=== PATIENT | male | born 1945 | race Two or more races ===

== ENCOUNTER 2018-01-28 17:39 | Inpatient (IN) | payer MEDICARE, OTHER ==
[~2018-01-28] VITALS: Ht 180.3 cm; Wt 89.8 kg
[~2018-01-28 17:39] MED LIST: ALBUAER3 IN; WARF6TAB21 PO
[2018-01-28 20:26] LABS: Basophils # (auto) 0 uL; Basophils % (auto) 0.2 % (0.0-2.0); Eosinophils # (auto) 0.1 uL; Eosinophils % (auto) 1.7 % (0.0-7.0); Hematocrit 29.8 % (41.0-53.0); Hemoglobin 10.1 g/dL (13.5-17.5); Lymphocytes # (auto) 1.2 uL; Lymphocytes % (auto) 27.4 % (10.0-50.0); Mean Corpuscular Hemoglobin 32.6 pg (28.0-32.0); Mean Corpuscular Volume 95.8 fL (80.0-100.0); Monocytes # (auto) 0.4 uL; Monocytes % (auto) 9.2 % (0.0-12.0); Neutrophils # (auto) 2.7 uL; Neutrophils % (auto) 61.5 % (37.0-80.0); Nucleated Red Blood Cells % 0.1 %; Platelet Count (auto) 158 10^3/uL (140-450); Red Cell Distribution Width 13.9 % (11.8-14.3); White Blood Cell 4.4 10^3/uL (4.4-10.8)
[2018-01-28 20:37] LABS: Albumin 2.8 g/dL (3.4-5.0); Anion Gap 4 (5-15); BUN/Creatinine Ratio 24.5; Blood Urea Nitrogen 23 mg/dL (7-18); Calcium 7.6 mg/dL (8.5-10.1); Carbon Dioxide 29 mmol/L (21-32); Chloride 109 mmol/L (98-107); GFR African American 102 mL/min; GFR Non-African American 84 mL/min; Glucose 148 mg/dL (74-106); Magnesium 2.2 mg/dL (1.6-2.6); Potassium 4.1 mmol/L (3.5-5.1); Sodium 142 mmol/L (136-145)
[2018-01-28 20:45] LABS: Alanine Aminotransferase 21 U/L (16-61); Alkaline Phosphatase 57 U/L (45-117); Aspartate Aminotransferase 21 U/L (15-37); Bilirubin, Total 0.5 mg/dL (0.2-1.0); Total Protein 5.7 g/dL (6.4-8.2)
[2018-01-28] MEDS ORDERED: SODIUM CHLORIDE 0.9% 500 ML IV ONE (22:00)
[2018-01-28 22:45] LABS: Amylase 44 U/L (25-115); INR 3.01 (0.9-1.15); Lipase 132 U/L (73-393); Partial Thromboplastin Time 32.7 sec (23.78-33.04); Prothrombin Time 30.3 sec (9.27-12.13)
[2018-01-29 01:48] LABS: Urine Bacteria NONE SEEN /hpf (None Seen); Urine Blood Negative /uL (Negative); Urine Mucus FEW (None Seen); Urine Specific Gravity 1.025 (1.001-1.035); Urine WBC 1 /hpf (0 - 3)
[2018-01-29] MEDS ORDERED: ACETAMINOPHEN 500 MG TAB PO PRN (03:30)
[2018-01-29] MEDS ORDERED: ONDANSETRON HCL 4 MG/2 ML VIAL IV PRN (03:30)
[2018-01-29] MEDS ORDERED: HYDROcodone-ACET 5/325MG TAB PO PRN (03:30)
[2018-01-29] MEDS: SODIUM CHLORIDE 0.9% 1,000 ML IV SCH ×2 (03:30→16:50)
[2018-01-29] MEDS ORDERED: DEXTROSE (50%) 50ML SYRG IV PRN (03:30)
[2018-01-29] MEDS: InsuLIN REG 1unit/0.01ml Soln (100units/ml) SC SCH ×3 (06:30→18:00)
[2018-01-29] MEDS: ACCU-CHEK COMFORT CURVE STRIP VI SCH ×3 (06:30→18:00)
[2018-01-29 07:58] LABS: Basophils # (auto) 0 uL; Basophils % (auto) 0.2 % (0.0-2.0); Eosinophils # (auto) 0.1 uL; Eosinophils % (auto) 1.9 % (0.0-7.0); Hemoglobin 8.5 g/dL (13.5-17.5); Lymphocytes % (auto) 33.5 % (10.0-50.0); Mean Corpuscular Hemoglobin 32.6 pg (28.0-32.0); Mean Corpuscular Hgb Conc. 33.8 g/dL (32.0-36.0); Mean Corpuscular Volume 96.3 fL (80.0-100.0); Monocytes # (auto) 0.2 uL; Monocytes % (auto) 8.5 % (0.0-12.0); Neutrophils # (auto) 1.6 uL; Neutrophils % (auto) 55.9 % (37.0-80.0); Nucleated Red Blood Cells % 0.1 %; Platelet Count (auto) 131 10^3/uL (140-450); Red Cell Distribution Width 13.5 % (11.8-14.3); White Blood Cell 2.8 10^3/uL (4.4-10.8)
[2018-01-29 08:09] LABS: BUN/Creatinine Ratio 34.4; Calcium 7.1 mg/dL (8.5-10.1); Potassium 4.1 mmol/L (3.5-5.1)
[2018-01-29] MEDS ORDERED: PANTOPRAZOLE 40 MG/10 ML VIAL IV SCH (10:00)
[2018-01-29] MEDS ORDERED: METF-370 PO (10:02)
[2018-01-29] MEDS ORDERED: WARF7.5T PO (10:02)
[2018-01-29] MEDS ORDERED: WARF5TAB71 PO (10:02)
[2018-01-29] MEDS ORDERED: SIMV-8 PO (10:02)
[2018-01-29] MEDS ORDERED: PNEUMOCOCCAL VACC POLYS 25 MCG/0.5 ML VIAL IM ONE (12:00)
[2018-01-29 13:00] VITALS: BP 97/60
[2018-01-29 17:00] VITALS: BP 101/59
[2018-01-29 18:29] VITALS: BP 101/59
== END 2018-01-29 20:00 | disposition short-term general hospital (02) | DRG 378 ==
LOC: ER 17:39 → OVERFLOW 17:40 → WEST WING 01-29 10:18
PROVIDERS: ADMIT Nurse Practitioner Family; ATTEND Internal Medicine Geriatric Medicine
DX: K92.1 Melena (principal); J98.11 Atelectasis; D62 Acute posthemorrhagic anemia; I27.21 Secondary pulmonary arterial hypertension; K80.20 Calculus of gallbladder without cholecystitis without obstruction; K57.30 Diverticulosis of large intestine without perforation or abscess without bleeding; K59.00 Constipation, unspecified; K40.90 Unilateral inguinal hernia, without obstruction or gangrene, not specified as recurrent; E11.9 Type 2 diabetes mellitus without complications; E78.5 Hyperlipidemia, unspecified; Z79.01 Long term (current) use of anticoagulants; Z23 Encounter for immunization; Z83.3 Family history of diabetes mellitus; Z86.711 Personal history of pulmonary embolism
CPT/HCPCS: 36415; 74176; 80048; 80053; 81001; 82150; 82962; 83036; 83605; 83690; 83735; 84154; 84484; 85025; 85610; 85730; 86850; 86900; 86901; 93005; 94761; 96360; C9113

== ENCOUNTER 2022-08-24 14:25 | Inpatient (IN) | payer OTHER ==
[~2022-08-24] VITALS: Ht 180.3 cm; Wt 90.2 kg
[2022-08-24] MEDS: SODIUM CHLOR 0.9% PF (SALINE LOCK) 10ML VIAL/SYR IV SCH (01:30)
[~2022-08-24 14:25] MED LIST changes: -ALBUAER3 IN; +NORPTMEDS; -WARF6TAB21 PO
[2022-08-24 15:23] LABS: Basophils # (auto) 0 10 ^3/uL (0-0.2); Basophils % (auto) 0.4 % (0.0-2.0); Eosinophils # (auto) 0.1 10 ^3/uL (0-0.8); Eosinophils % (auto) 1.5 % (0.0-7.0); Hematocrit 35.1 % (41.0-53.0); Hemoglobin 10.5 g/dL (13.5-17.5); Lymphocytes # (auto) 0.8 10 ^3/uL (0.4-5.4); Lymphocytes % (auto) 21.9 % (10.0-50.0); Mean Corpuscular Hemoglobin 21.9 pg (28.0-32.0); Mean Corpuscular Hgb Conc. 29.9 g/dL (32.0-36.0); Mean Corpuscular Volume 73.3 fL (80.0-100.0); Monocytes # (auto) 0.4 10 ^3/uL (0-1.3); Monocytes % (auto) 11.3 % (0.0-12.0); Neutrophils # (auto) 2.4 10 ^3/uL (1.6-8.6); Neutrophils % (auto) 64.9 % (37.0-80.0); Nucleated Red Blood Cells % 0.1 %; Red Blood Cells 4.78 10^6/uL (4.5-5.90); White Blood Cell 3.7 10^3/uL (4.4-10.8)
[2022-08-24 15:24] LABS: Red Cell Distribution Width 20.5 % (11.8-14.3)
[2022-08-24 15:32] LABS: Albumin 3.3 g/dL (3.4-5.0); BUN/Creatinine Ratio 19.7 (10.0-20.0); Calcium 8.6 mg/dL (8.5-10.1); Potassium 4.2 mmol/L (3.5-5.1)
[2022-08-24 15:35] LABS: Total Protein 7.5 g/dL (6.4-8.2)
[2022-08-24 15:51] LABS: Urine Bacteria NONE SEEN /hpf (None Seen); Urine Blood Negative /uL (Negative); Urine Mucus FEW (None Seen); Urine Specific Gravity 1.027 (1.001-1.035); Urine WBC 1 /hpf (0 - 3)
[2022-08-24] MEDS ORDERED: cefTRIAXone 1GM/50ML D5W 50 ML IV ONE (18:15)
[2022-08-24] MEDS ORDERED: AZITHROMYCIN 500MG/ 250ML 250 ML IV ONE (18:15)
[2022-08-24] MEDS ORDERED: ENOXAPARIN SOD 100 MG/1 ML SYRINGE SC ONE (18:15)
[2022-08-24] MEDS ORDERED: ONDANSETRON HCL 4 MG/2 ML VIAL IV PRN (22:00)
[2022-08-24] MEDS ORDERED: DOCUSATE SOD 100 MG CAP PO PRN (22:00)
[2022-08-24] MEDS ORDERED: ACETAMINOPHEN 325 MG TAB PO PRN (22:00)
[2022-08-24] MEDS ORDERED: NITROGLYCERIN 0.4 MG SL TAB SL PRN (23:45)
[2022-08-24] MEDS ORDERED: MORPHINE SULFATE INJ 2 MG/ml SYRG IV PRN (23:45)
[2022-08-25 04:06] LABS: Basophils # (auto) 0 10 ^3/uL (0-0.2); Eosinophils # (auto) 0.1 10 ^3/uL (0-0.8); Lymphocytes # (auto) 0.9 10 ^3/uL (0.4-5.4); Monocytes # (auto) 0.5 10 ^3/uL (0-1.3); Monocytes % (auto) 13.3 % (0.0-12.0); Neutrophils # (auto) 2.1 10 ^3/uL (1.6-8.6); Nucleated Red Blood Cells % 0.1 %; White Blood Cell 3.5 10^3/uL (4.4-10.8)
[2022-08-25 04:08] LABS: Basophils % (auto) 0.4 % (0.0-2.0); Eosinophils % (auto) 2.5 % (0.0-7.0); Hematocrit 31.4 % (41.0-53.0); Hemoglobin 9.8 g/dL (13.5-17.5); Mean Corpuscular Hgb Conc. 31.3 g/dL (32.0-36.0); Mean Corpuscular Volume 73.5 fL (80.0-100.0); Neutrophils % (auto) 58.8 % (37.0-80.0); Red Blood Cells 4.27 10^6/uL (4.5-5.90)
[2022-08-25 04:22] LABS: Albumin 2.9 g/dL (3.4-5.0); Calcium 8.4 mg/dL (8.5-10.1); Potassium 3.7 mmol/L (3.5-5.1)
[2022-08-25 04:27] LABS: BUN/Creatinine Ratio 18.2 (10.0-20.0); Bilirubin, Total 1.1 mg/dL (0.2-1.0); Total Protein 6.8 g/dL (6.4-8.2)
[2022-08-25] MEDS: SODIUM CHLOR 0.9% PF (SALINE LOCK) 10ML VIAL/SYR IV SCH ×2 (05:45→09:35)
[2022-08-25] MEDS: HYDROcodone-ACET 5/325MG TAB PO PRN (07:06)
[2022-08-25] MEDS: cefTRIAXone 1GM/50ML D5W 50 ML IV SCH (08:13)
[2022-08-25] MEDS: AZITHROMYCIN 500MG/ 250ML 250 ML IV SCH (09:34)
[2022-08-25] MEDS ORDERED: ENOXAPARIN SOD 100 MG/1 ML SYRINGE SC SCH (10:00)
[2022-08-25] MEDS ORDERED: FUROSEMIDE 20 MG/2 ML VIAL IV ONE (15:15)
[2022-08-25 23:53] VITALS: BP 117/78
[2022-08-26] MEDS: HYDROcodone-ACET 5/325MG TAB PO PRN (00:47)
[2022-08-26] MEDS: ENOXAPARIN SOD 100 MG/1 ML SYRINGE SC SCH ×3 (00:48→22:21)
[2022-08-26] MEDS: SODIUM CHLOR 0.9% PF (SALINE LOCK) 10ML VIAL/SYR IV SCH ×4 (00:48→22:20)
[2022-08-26] MEDS ORDERED: APIX5TAB PO (00:50)
[2022-08-26] MEDS ORDERED: MONT4CHW18 PO (00:50)
[2022-08-26 05:00] VITALS: BP 108/56
[2022-08-26 06:11] LABS: Basophils # (auto) 0 10 ^3/uL (0-0.2); Eosinophils # (auto) 0.1 10 ^3/uL (0-0.8); Lymphocytes # (auto) 0.8 10 ^3/uL (0.4-5.4); Mean Corpuscular Volume 70.7 fL (80.0-100.0); Monocytes # (auto) 0.4 10 ^3/uL (0-1.3); Nucleated Red Blood Cells % 0.2 %; Red Cell Distribution Width 19.7 % (11.8-14.3)
[2022-08-26 06:14] LABS: Basophils % (auto) 0.2 % (0.0-2.0); Hematocrit 31.3 % (41.0-53.0); Hemoglobin 10.2 g/dL (13.5-17.5); Lymphocytes % (auto) 30.2 % (10.0-50.0); Mean Corpuscular Hgb Conc. 32.6 g/dL (32.0-36.0); Monocytes % (auto) 14.7 % (0.0-12.0); Neutrophils # (auto) 1.4 10 ^3/uL (1.6-8.6); Neutrophils % (auto) 52.9 % (37.0-80.0); Red Blood Cells 4.42 10^6/uL (4.5-5.90); White Blood Cell 2.7 10^3/uL (4.4-10.8)
[2022-08-26 06:27] LABS: Potassium 3.9 mmol/L (3.5-5.1)
[2022-08-26 06:35] LABS: BUN/Creatinine Ratio 16.3 (10.0-20.0); Calcium 8.9 mg/dL (8.5-10.1)
[2022-08-26 08:51] VITALS: BP 115/67
[2022-08-26] MEDS: AZITHROMYCIN 500MG/ 250ML 250 ML IV SCH (09:13)
[2022-08-26] MEDS: cefTRIAXone 1GM/50ML D5W 50 ML IV SCH (09:13)
[2022-08-26 13:00] VITALS: BP 113/63
[2022-08-26 16:53] VITALS: BP 121/62
[2022-08-26 17:45] LABS: INR 1.11 (0.9-1.15)
[2022-08-26] MEDS: CLINDAMYCIN HCL 150 MG CAP PO SCH ×2 (18:45→22:20)
[2022-08-26 22:00] VITALS: BP 123/60
[2022-08-26] MEDS ORDERED: CLINDAMYCIN 300MG IV 50 ML IV SCH (22:00)
[2022-08-27 05:00] VITALS: BP 121/62
[2022-08-27 05:55] LABS: INR 1.1 (0.9-1.15)
[2022-08-27] MEDS: SODIUM CHLOR 0.9% PF (SALINE LOCK) 10ML VIAL/SYR IV SCH ×3 (05:55→23:05)
[2022-08-27] MEDS: CLINDAMYCIN HCL 150 MG CAP PO SCH ×4 (05:55→22:58)
[2022-08-27 08:00] VITALS: BP 108/57
[2022-08-27] MEDS: cefTRIAXone 1GM/50ML D5W 50 ML IV SCH (09:25)
[2022-08-27] MEDS: ENOXAPARIN SOD 100 MG/1 ML SYRINGE SC SCH ×2 (11:03→22:58)
[2022-08-27 12:40] VITALS: BP 117/56
[2022-08-27] MEDS ORDERED: WARFARIN SODIUM 5 MG TAB PO ONE (17:00)
[2022-08-27 17:14] VITALS: BP 115/59
[2022-08-27 22:00] VITALS: BP 121/68
[2022-08-28 05:00] VITALS: BP 108/60
[2022-08-28 06:26] LABS: INR 1.12 (0.9-1.15)
[2022-08-28] MEDS: SODIUM CHLOR 0.9% PF (SALINE LOCK) 10ML VIAL/SYR IV SCH ×3 (06:38→22:00)
[2022-08-28] MEDS: CLINDAMYCIN HCL 150 MG CAP PO SCH ×4 (06:38→22:57)
[2022-08-28 09:00] VITALS: BP 116/53
[2022-08-28] MEDS: cefTRIAXone 1GM/50ML D5W 50 ML IV SCH (09:25)
[2022-08-28] MEDS: ENOXAPARIN SOD 100 MG/1 ML SYRINGE SC SCH ×2 (09:32→22:57)
[2022-08-28] MEDS ORDERED: ALBUTEROL SULF 2.5 MG/0.5ML(0.5%) NEB SOLN NEB PRN (12:00)
[2022-08-28] MEDS ORDERED: IPRATROPIUM BROM 0.5 MG/2.5ML INH SOL NEB PRN (12:00)
[2022-08-28] MEDS ORDERED: DEXTROSE (50%) 50ML SYRG IV PRN (12:00)
[2022-08-28 12:49] VITALS: BP 116/53
[2022-08-28 13:00] VITALS: BP 117/62
[2022-08-28 17:00] VITALS: BP 124/64
[2022-08-28] MEDS ORDERED: CYANOCOBALAMIN (B-12) 1000 MCG/1 ML VIAL IM ONE (17:00)
[2022-08-28] MEDS: ACCU-CHEK COMFORT CURVE STRIP VI SCH ×2 (17:00→22:00)
[2022-08-28] MEDS ORDERED: WARFARIN SODIUM 5 MG TAB PO ONE (17:00)
[2022-08-28] MEDS: InsuLIN REG 1unit/0.01ml Soln (100units/ml) SC SCH ×2 (17:00→23:01)
[2022-08-28] MEDS ORDERED: WARFARIN SODIUM 10 MG TAB PO ONE (17:00)
[2022-08-28] MEDS ORDERED: ERGOCALCIFEROL 50,000 UNIT(1.25MG) CAP PO SCH (17:00)
[2022-08-28] MEDS: HYDROcodone-ACET 5/325MG TAB PO PRN (20:51)
[2022-08-28 22:00] VITALS: BP 119/67
[2022-08-28 22:26] LABS: Urine Bacteria None Seen /hpf (None Seen)
[2022-08-28] MEDS: FLORASTOR (S. BOULARDII) 250 MG CAP PO SCH (22:55)
[2022-08-28 23:00] LABS: Urine WBC 3 /hpf (0 - 3)
[2022-08-28 23:02] LABS: Urine Mucus FEW (None Seen)
[2022-08-29] MEDS: SODIUM CHLOR 0.9% PF (SALINE LOCK) 10ML VIAL/SYR IV SCH ×3 (06:13→21:32)
[2022-08-29] MEDS: ACCU-CHEK COMFORT CURVE STRIP VI SCH ×4 (06:14→21:32)
[2022-08-29] MEDS: InsuLIN REG 1unit/0.01ml Soln (100units/ml) SC SCH ×4 (06:14→21:35)
[2022-08-29] MEDS: CLINDAMYCIN HCL 150 MG CAP PO SCH ×4 (06:29→21:31)
[2022-08-29 06:34] LABS: Basophils # (auto) 0 10 ^3/uL (0-0.2); Calcium 8.9 mg/dL (8.5-10.1); Hemoglobin 10.7 g/dL (13.5-17.5); Lymphocytes # (auto) 0.8 10 ^3/uL (0.4-5.4); Monocytes # (auto) 0.4 10 ^3/uL (0-1.3); Neutrophils # (auto) 2.1 10 ^3/uL (1.6-8.6); Potassium 3.7 mmol/L (3.5-5.1)
[2022-08-29 06:35] LABS: INR 1.14 (0.9-1.15); Partial Thromboplastin Time 31.3 sec (24.6-33.4)
[2022-08-29 06:36] LABS: Basophils % (auto) 0.5 % (0.0-2.0); Eosinophils # (auto) 0.1 10 ^3/uL (0-0.8); Eosinophils % (auto) 1.6 % (0.0-7.0); Hematocrit 34.1 % (41.0-53.0); Lymphocytes % (auto) 22.8 % (10.0-50.0); Mean Corpuscular Hemoglobin 22.6 pg (28.0-32.0); Mean Corpuscular Hgb Conc. 31.4 g/dL (32.0-36.0); Monocytes % (auto) 12.8 % (0.0-12.0); Neutrophils % (auto) 62.3 % (37.0-80.0); Nucleated Red Blood Cells % 0.2 %; Red Blood Cells 4.73 10^6/uL (4.5-5.90); Red Cell Distribution Width 19.7 % (11.8-14.3); White Blood Cell 3.3 10^3/uL (4.4-10.8)
[2022-08-29 06:40] LABS: BUN/Creatinine Ratio 26.3 (10.0-20.0)
[2022-08-29 06:50] LABS: Magnesium 2.2 mg/dL (1.6-2.6)
[2022-08-29 09:22] VITALS: BP 104/63
[2022-08-29] MEDS: CYANOCOBALAMIN (B-12) 1000 MCG/1 ML VIAL IM SCH (10:00)
[2022-08-29] MEDS ORDERED: FLORASTOR (S. BOULARDII) 250 MG CAP PO SCH (10:00)
[2022-08-29] MEDS: cefTRIAXone 1GM/50ML D5W 50 ML IV SCH (10:13)
[2022-08-29] MEDS: FLORASTOR (S. BOULARDII) 250 MG CAP PO SCH ×2 (10:13→21:32)
[2022-08-29] MEDS: ENOXAPARIN SOD 100 MG/1 ML SYRINGE SC SCH ×2 (10:14→21:31)
[2022-08-29 12:40] VITALS: BP 110/61
[2022-08-29 16:52] VITALS: BP 111/60
[2022-08-29] MEDS ORDERED: WARFARIN SODIUM 10 MG TAB PO ONE (17:00)
[2022-08-29 20:00] VITALS: BP 119/62
[2022-08-29 22:00] VITALS: BP 119/62
[2022-08-30 05:00] VITALS: BP 111/69
[2022-08-30 05:58] LABS: Basophils # (auto) 0 10 ^3/uL (0-0.2); Eosinophils # (auto) 0.1 10 ^3/uL (0-0.8); Hemoglobin 10.6 g/dL (13.5-17.5); Lymphocytes # (auto) 0.7 10 ^3/uL (0.4-5.4); Monocytes # (auto) 0.3 10 ^3/uL (0-1.3); Nucleated Red Blood Cells % 0.1 %
[2022-08-30] MEDS: SODIUM CHLOR 0.9% PF (SALINE LOCK) 10ML VIAL/SYR IV SCH ×3 (06:00→21:48)
[2022-08-30 06:02] LABS: Basophils % (auto) 0.4 % (0.0-2.0); Eosinophils % (auto) 2.1 % (0.0-7.0); Hematocrit 34.2 % (41.0-53.0); Lymphocytes % (auto) 27.8 % (10.0-50.0); Mean Corpuscular Hemoglobin 22.7 pg (28.0-32.0); Mean Corpuscular Volume 73.2 fL (80.0-100.0); Monocytes % (auto) 12.1 % (0.0-12.0); Neutrophils # (auto) 1.5 10 ^3/uL (1.6-8.6); Neutrophils % (auto) 57.6 % (37.0-80.0); Red Blood Cells 4.67 10^6/uL (4.5-5.90); White Blood Cell 2.5 10^3/uL (4.4-10.8)
[2022-08-30 06:04] LABS: Red Cell Distribution Width 20.3 % (11.8-14.3)
[2022-08-30 06:09] LABS: Calcium 8.9 mg/dL (8.5-10.1); Potassium 3.9 mmol/L (3.5-5.1)
[2022-08-30 06:11] LABS: INR 1.38 (0.9-1.15); Partial Thromboplastin Time 31.7 sec (24.6-33.4)
[2022-08-30 06:13] LABS: Albumin 2.9 g/dL (3.4-5.0); Bilirubin, Total 0.6 mg/dL (0.2-1.0)
[2022-08-30] MEDS: CLINDAMYCIN HCL 150 MG CAP PO SCH ×4 (06:33→21:51)
[2022-08-30] MEDS: ACCU-CHEK COMFORT CURVE STRIP VI SCH ×4 (06:35→21:48)
[2022-08-30] MEDS: InsuLIN REG 1unit/0.01ml Soln (100units/ml) SC SCH ×4 (06:35→21:48)
[2022-08-30 08:00] VITALS: BP 119/62
[2022-08-30 09:00] VITALS: BP 115/65
[2022-08-30] MEDS: CYANOCOBALAMIN (B-12) 1000 MCG/1 ML VIAL IM SCH (09:17)
[2022-08-30] MEDS: ENOXAPARIN SOD 100 MG/1 ML SYRINGE SC SCH ×2 (09:18→21:47)
[2022-08-30] MEDS: FLORASTOR (S. BOULARDII) 250 MG CAP PO SCH ×2 (09:18→21:47)
[2022-08-30] MEDS: cefTRIAXone 1GM/50ML D5W 50 ML IV SCH (09:18)
[2022-08-30 13:00] VITALS: BP 107/59
[2022-08-30 16:56] VITALS: BP 137/71
[2022-08-30] MEDS ORDERED: WARFARIN SODIUM 2.5 MG TAB PO ONE (17:00)
[2022-08-30 22:00] VITALS: BP 123/61
[2022-08-31 05:00] VITALS: BP 118/59
[2022-08-31 05:56] LABS: Basophils # (auto) 0 10 ^3/uL (0-0.2); Basophils % (auto) 0.6 % (0.0-2.0); Eosinophils # (auto) 0.1 10 ^3/uL (0-0.8); Eosinophils % (auto) 3.5 % (0.0-7.0); Hematocrit 36.2 % (41.0-53.0); Hemoglobin 11.1 g/dL (13.5-17.5); Lymphocytes # (auto) 0.8 10 ^3/uL (0.4-5.4); Lymphocytes % (auto) 28.4 % (10.0-50.0); Mean Corpuscular Hemoglobin 22.6 pg (28.0-32.0); Mean Corpuscular Hgb Conc. 30.6 g/dL (32.0-36.0); Mean Corpuscular Volume 73.7 fL (80.0-100.0); Monocytes # (auto) 0.4 10 ^3/uL (0-1.3); Monocytes % (auto) 13.4 % (0.0-12.0); Neutrophils # (auto) 1.5 10 ^3/uL (1.6-8.6); Neutrophils % (auto) 54.1 % (37.0-80.0); Nucleated Red Blood Cells % 0.3 %; Red Blood Cells 4.91 10^6/uL (4.5-5.90); Red Cell Distribution Width 19.9 % (11.8-14.3); White Blood Cell 2.7 10^3/uL (4.4-10.8)
[2022-08-31] MEDS: CLINDAMYCIN HCL 150 MG CAP PO SCH ×4 (06:02→21:53)
[2022-08-31] MEDS: SODIUM CHLOR 0.9% PF (SALINE LOCK) 10ML VIAL/SYR IV SCH ×3 (06:02→21:53)
[2022-08-31 06:07] LABS: INR 2.16 (0.9-1.15); Partial Thromboplastin Time 34.6 sec (24.6-33.4)
[2022-08-31] MEDS: ACCU-CHEK COMFORT CURVE STRIP VI SCH ×5 (06:20→21:54)
[2022-08-31] MEDS: InsuLIN REG 1unit/0.01ml Soln (100units/ml) SC SCH ×4 (06:20→22:07)
[2022-08-31] MEDS: cefTRIAXone 1GM/50ML D5W 50 ML IV SCH (08:47)
[2022-08-31] MEDS: FLORASTOR (S. BOULARDII) 250 MG CAP PO SCH ×2 (08:56→21:53)
[2022-08-31] MEDS: ENOXAPARIN SOD 100 MG/1 ML SYRINGE SC SCH ×2 (08:57→22:00)
[2022-08-31] MEDS: CYANOCOBALAMIN (B-12) 1000 MCG/1 ML VIAL IM SCH (08:58)
[2022-08-31 09:00] VITALS: BP 115/63
[2022-08-31 13:00] VITALS: BP 112/69
[2022-08-31 17:00] VITALS: BP 114/76
[2022-08-31] MEDS ORDERED: WARFARIN SODIUM 5 MG TAB PO ONE (17:00)
[2022-08-31 22:00] VITALS: BP 127/61
[2022-09-01 05:00] VITALS: BP 103/64
[2022-09-01] MEDS: CLINDAMYCIN HCL 150 MG CAP PO SCH ×2 (05:26→11:35)
[2022-09-01] MEDS: SODIUM CHLOR 0.9% PF (SALINE LOCK) 10ML VIAL/SYR IV SCH ×2 (05:26→14:00)
[2022-09-01] MEDS: ACCU-CHEK COMFORT CURVE STRIP VI SCH ×2 (06:48→11:56)
[2022-09-01] MEDS: InsuLIN REG 1unit/0.01ml Soln (100units/ml) SC SCH ×2 (06:48→11:30)
[2022-09-01 07:39] LABS: INR 2.91 (0.9-1.15); Partial Thromboplastin Time 34.2 sec (24.6-33.4)
[2022-09-01 09:00] VITALS: BP 100/54
[2022-09-01] MEDS: CYANOCOBALAMIN (B-12) 1000 MCG/1 ML VIAL IM SCH (10:40)
[2022-09-01] MEDS: ENOXAPARIN SOD 100 MG/1 ML SYRINGE SC SCH (10:40)
[2022-09-01] MEDS: cefTRIAXone 1GM/50ML D5W 50 ML IV SCH (10:40)
[2022-09-01] MEDS: FLORASTOR (S. BOULARDII) 250 MG CAP PO SCH (10:40)
[2022-09-01] MEDS ORDERED: DOXY-340 PO (11:16)
[2022-09-01] MEDS ORDERED: CLIN300C8 PO (11:16)
[2022-09-01] MEDS ORDERED: COUMPOW OR (11:16)
[2022-09-01 12:56] VITALS: BP 140/83
[2022-09-01 13:20] VITALS: BP 126/64
== END 2022-09-01 14:45 | disposition home or self-care (01) | DRG 299 ==
LOC: ER 14:25 → TELE 23:41 → TELE-CENTR 08-25 23:38
PROVIDERS: ADMIT Nurse Practitioner Family; ATTEND Internal Medicine
DX: I82.412 Acute embolism and thrombosis of left femoral vein (principal); I50.33 Acute on chronic diastolic (congestive) heart failure; J18.9 Pneumonia, unspecified organism; L03.115 Cellulitis of right lower limb; L03.116 Cellulitis of left lower limb; I11.0 Hypertensive heart disease with heart failure; E11.65 Type 2 diabetes mellitus with hyperglycemia; L30.9 Dermatitis, unspecified; Z79.01 Long term (current) use of anticoagulants; Z83.3 Family history of diabetes mellitus; Z86.711 Personal history of pulmonary embolism; Z86.718 Personal history of other venous thrombosis and embolism
CPT/HCPCS: 36415; 71045; 71046; 78582; 80048; 80053; 80061; 81001; 81015; 81241; 82043; 82306; 82607; 82962; 83036; 83605; 83735; 83880; 84443; 84484; 85025; 85301; 85610; 85613; 85670; 85705; 85730; 85732; 86800; 87040; 93306; 93925; 93970; G0378; J0696; J1815; J2405

== ENCOUNTER → 2022-09-14 | Outpatient (CLI) | payer OTHER ==
[~2022-09-14] MED LIST changes: +APIX5TAB PO; +CLIN300C8 PO; +COUMPOW OR; +DOXY-340 PO; +MONT4CHW18 PO; -NORPTMEDS
[2022-09-14 10:06] LABS: INR > 8.0 (0.9-1.15)
== END | disposition home or self-care (01) ==
LOC: LAB 09:16
PROVIDERS: ATTEND Internal Medicine
DX: I82.890 Acute embolism and thrombosis of other specified veins (principal); R60.0 Localized edema; I99.9 Unspecified disorder of circulatory system
CPT/HCPCS: 36415; 85610

== ENCOUNTER → 2022-11-01 | Outpatient (CLI) | payer OTHER ==
[~2022-11-01] MED LIST changes: +CLIN300C70 PO; -CLIN300C8 PO; -DOXY-340 PO; +DOXY1CAP57 PO
[2022-11-01 08:53] LABS: INR 1.57 (0.9-1.15); Partial Thromboplastin Time 28.2 sec (24.6-33.4)
== END | disposition home or self-care (01) ==
LOC: LAB 08:16
PROVIDERS: ATTEND Physician Assistant
DX: I82.409 Acute embolism and thrombosis of unspecified deep veins of unspecified lower extremity (principal); Z86.711 Personal history of pulmonary embolism
CPT/HCPCS: 36415; 85610; 85730

== ENCOUNTER → 2022-12-15 | Outpatient (CLI) | payer OTHER ==
[2022-12-15 06:59] LABS: Urine Bacteria NONE SEEN /hpf (None Seen); Urine Blood Negative /uL (Negative); Urine Mucus FEW (None Seen); Urine Specific Gravity 1.021 (1.001-1.035); Urine WBC 2 /hpf (0 - 3)
[2022-12-15 07:00] LABS: Potassium 3.9 mmol/L (3.5-5.1)
[2022-12-15 07:09] LABS: Albumin 3.3 g/dL (3.4-5.0); BUN/Creatinine Ratio 11.2 (10.0-20.0); Bilirubin, Total 1.3 mg/dL (0.2-1.0); Calcium 8.6 mg/dL (8.5-10.1); Magnesium 2.2 mg/dL (1.6-2.6); Total Protein 7.5 g/dL (6.4-8.2); Uric Acid 4.4 mg/dL (3.5-7.2)
[2022-12-15 08:21] LABS: Folate (Folic Acid) 8.99 ng/mL (5.38-24)
[2022-12-15 12:36] LABS: Hematocrit 35.1 % (41.0-53.0); Hemoglobin 10.4 g/dL (13.5-17.5); Mean Corpuscular Hemoglobin 21.8 pg (28.0-32.0); Mean Corpuscular Hgb Conc. 29.7 g/dL (32.0-36.0); Mean Corpuscular Volume 73.5 fL (80.0-100.0); Red Blood Cells 4.78 10^6/uL (4.5-5.90); Red Cell Distribution Width 19.7 % (11.8-14.3); White Blood Cell 3.3 10^3/uL (4.4-10.8)
[2022-12-15 12:38] LABS: Basophils % (manual) 0 (0.0-2.0); Blast Cells 0; Metamyelocytes % 0; Myelocytes % 0; Promyelocytes % 0; Reactive Lymphocytes 0
[2022-12-15 14:00] LABS: Band Neutrophils % (manual) 2; Eosinophils % (manual) 4 (0-7); Lymphocytes % (manual) 34 (10.0-50.0); Monocytes % (manual) 8 (0-12)
== END | disposition home or self-care (01) ==
LOC: LAB 06:01
PROVIDERS: ATTEND Internal Medicine
DX: R68.89 Other general symptoms and signs (principal); E78.41 Elevated Lipoprotein(a); R73.09 Other abnormal glucose; E61.2 Magnesium deficiency; R94.6 Abnormal results of thyroid function studies; R82.991 Hypocitraturia; R82.90 Unspecified abnormal findings in urine; R82.79 Other abnormal findings on microbiological examination of urine; E55.9 Vitamin D deficiency, unspecified; D51.9 Vitamin B12 deficiency anemia, unspecified; E79.0 Hyperuricemia without signs of inflammatory arthritis and tophaceous disease
CPT/HCPCS: 36415; 80053; 80061; 81001; 82306; 82607; 82746; 83036; 83735; 84443; 84550; 85007; 85027; 87086

== ENCOUNTER 2023-04-17 15:02 | Emergency (ER) | payer OTHER ==
[~2023-04-17] VITALS: Ht 167.6 cm; Wt 94.3 kg
[2023-04-17 16:12] LABS: Basophils # (auto) 0 10 ^3/uL (0-0.2); Basophils % (auto) 0.2 % (0.0-2.0); Eosinophils # (auto) 0.1 10 ^3/uL (0-0.8); Eosinophils % (auto) 1.7 % (0.0-7.0); Hemoglobin 15.1 g/dL (13.5-17.5); Lymphocytes % (auto) 31.9 % (10.0-50.0); Mean Corpuscular Volume 87.3 fL (80.0-100.0); Monocytes # (auto) 0.3 10 ^3/uL (0-1.3); Monocytes % (auto) 10.9 % (0.0-12.0); Neutrophils # (auto) 1.7 10 ^3/uL (1.6-8.6); Neutrophils % (auto) 55.3 % (37.0-80.0); Nucleated Red Blood Cells % 0.1 %; Red Blood Cells 5.38 10^6/uL (4.5-5.90); Red Cell Distribution Width 17.4 % (11.8-14.3)
[2023-04-17 16:29] LABS: Alanine Aminotransferase 18 U/L (7-40); Alkaline Phosphatase 85 U/L (46-116); Anion Gap 3 (5-15); BUN/Creatinine Ratio 13.8 (10.0-20.0); Blood Urea Nitrogen 11 mg/dL (9-23); Calcium 8.9 mg/dL (8.7-10.4); Carbon Dioxide 32 mmol/L (20-30); Chloride 106 mmol/L (98-107); Glucose 117 mg/dL (74-106); Potassium 4.1 mmol/L (3.5-5.1); Sodium 141 mmol/L (136-145)
[2023-04-17 16:30] LABS: Albumin 4.1 g/dL (3.2-4.8); Aspartate Aminotransferase 21 U/L (13-40); Bilirubin, Total 1.4 mg/dL (0.2-1.0); Total Protein 6.9 g/dL (5.7-8.2)
[2023-04-17 16:41] LABS: INR 2.09 (0.9-1.15); Partial Thromboplastin Time 33.8 SEC (24.5-34.5); Prothrombin Time 20.9 sec (9.3-11.8)
[2023-04-17] MEDS ORDERED: IOHEXOL 350 MG/ML 100ML IJ ONE ×2 (17:25→20:42)
[2023-04-17] MEDS ORDERED: CEPH500C PO (21:05)
[2023-04-17 23:27] VITALS: BP 129/69; TEMP 98
[2023-04-17 23:29] VITALS: PULSE 64; RESP 14; O2SAT 92
== END 2023-04-17 23:31 | disposition home or self-care (01) ==
LOC: ER 15:02
DX: I73.9 Peripheral vascular disease, unspecified (principal); K80.20 Calculus of gallbladder without cholecystitis without obstruction; I50.9 Heart failure, unspecified; Z79.899 Other long term (current) drug therapy
CPT/HCPCS: 36415; 75635; 80053; 84484; 85025; 85610; 85730; 93005; 99285; Q9967

== ENCOUNTER → 2023-05-24 | Outpatient (CLI) | payer OTHER ==
[~2023-05-24] MED LIST changes: +CEPH500C PO
[2023-05-24 06:58] LABS: Urine Bacteria NONE SEEN /hpf (None Seen); Urine Blood Negative /uL (Negative); Urine Clarity Clear (Clear); Urine Color Yellow (Yellow); Urine Protein, UAD TRACE (Negative); Urine Specific Gravity 1.023 (1.001-1.035); Urine Urobilinogen Normal (Negative); Urine WBC 2 /hpf (0 - 3); Urine pH 6.5 (5.0-8.0)
[2023-05-24 07:03] LABS: Basophils # (auto) 0 10 ^3/uL (0-0.2); Basophils % (auto) 0.3 % (0.0-2.0); Eosinophils # (auto) 0 10 ^3/uL (0-0.8); Eosinophils % (auto) 1.3 % (0.0-7.0); Hematocrit 46.4 % (41.0-53.0); Hemoglobin 15.2 g/dL (13.5-17.5); Lymphocytes % (auto) 27.9 % (10.0-50.0); Mean Corpuscular Hemoglobin 28.6 pg (28.0-32.0); Mean Corpuscular Hgb Conc. 32.7 g/dL (32.0-36.0); Mean Corpuscular Volume 87.4 fL (80.0-100.0); Monocytes # (auto) 0.4 10 ^3/uL (0-1.3); Monocytes % (auto) 10.5 % (0.0-12.0); Neutrophils # (auto) 2.1 10 ^3/uL (1.6-8.6); Nucleated Red Blood Cells % 0.4 %; Red Blood Cells 5.31 10^6/uL (4.5-5.90); Red Cell Distribution Width 15.9 % (11.8-14.3); White Blood Cell 3.5 10^3/uL (4.4-10.8)
[2023-05-24 07:30] LABS: Alanine Aminotransferase 14 U/L (7-40); Albumin 4.2 g/dL (3.2-4.8); Alkaline Phosphatase 86 U/L (46-116); Anion Gap 5 (5-15); Aspartate Aminotransferase 23 U/L (13-40); BUN/Creatinine Ratio 12.8 (10.0-20.0); Bilirubin, Total 1.2 mg/dL (0.2-1.0); Blood Urea Nitrogen 11 mg/dL (9-23); Calcium 9.5 mg/dL (8.5-10.1); Carbon Dioxide 30 mmol/L (20-30); Chloride 105 mmol/L (98-107); Cholesterol 181 mg/dL (< 200); Glucose 156 mg/dL (74-106); HDL Cholesterol 39 mg/dL (40-59); LDL Cholesterol 127 mg/dL (< 100); Potassium 4.3 mmol/L (3.5-5.1); Sodium 140 mmol/L (136-145); Total Protein 7.4 g/dL (5.7-8.2); Triglycerides 89 mg/dL (< 150)
[2023-05-24 07:32] LABS: Folate (Folic Acid) 8.68 ng/mL (>5.38)
[2023-05-24 07:40] LABS: Uric Acid 5.6 mg/dL (3.7-9.2)
[2023-05-24 07:42] LABS: Magnesium 1.9 mg/dL (1.6-2.6)
== END | disposition home or self-care (01) ==
LOC: LAB 06:04
PROVIDERS: ATTEND Internal Medicine
DX: E61.2 Magnesium deficiency (principal); R94.6 Abnormal results of thyroid function studies; E79.0 Hyperuricemia without signs of inflammatory arthritis and tophaceous disease; R82.998 Other abnormal findings in urine; D51.9 Vitamin B12 deficiency anemia, unspecified; E55.9 Vitamin D deficiency, unspecified; R82.79 Other abnormal findings on microbiological examination of urine; R78.89 Finding of other specified substances, not normally found in blood; E78.49 Other hyperlipidemia; R68.89 Other general symptoms and signs; R73.09 Other abnormal glucose
CPT/HCPCS: 36415; 80053; 80061; 81001; 82306; 82607; 82746; 83036; 83735; 84443; 84550; 85025; 87086

== ENCOUNTER → 2023-07-03 | Outpatient (CLI) | payer OTHER | END | disposition home or self-care (01) | LOC: LAB 14:47 | DX: I70.263 Atherosclerosis of native arteries of extremities with gangrene, bilateral legs (principal); J44.9 Chronic obstructive pulmonary disease, unspecified; I97.821 Postprocedural cerebrovascular infarction following other surgery | CPT/HCPCS: 87077; 87186; 87205 ==

== ENCOUNTER 2024-01-29 01:42 | Emergency (ER) | payer OTHER ==
[~2024-01-29] VITALS: Ht 180.3 cm; Wt 87.5 kg
[~2024-01-29 01:42] MED LIST changes: +CLIN1CAP70 PO; -CLIN300C70 PO
[2024-01-29 02:12] LABS: Urine Bacteria None Seen /hpf (None Seen)
[2024-01-29 02:39] LABS: Urine Blood 3+ /uL (Negative); Urine Clarity Clear (Clear); Urine Color Light-Yellow (Yellow); Urine Protein, UAD Negative (Negative); Urine Specific Gravity 1.012 (1.001-1.035); Urine Urobilinogen Normal (Negative); Urine WBC 4 /hpf (0 - 3); Urine pH 5.5 (5.0-9.0)
[2024-01-29 06:10] VITALS: PULSE 80; RESP 19; O2SAT 92
[2024-01-29] MEDS ORDERED: BACDST PO (07:25)
[2024-01-29 07:48] VITALS: BP 124/78; PULSE 72; RESP 18; TEMP 97.9; O2SAT 91
[2024-01-29] MEDS: cefTRIAXone SOD 1,000 MG VL IM ONE (07:57)
== END 2024-01-29 09:38 | disposition home or self-care (01) ==
LOC: ER 01:42
DX: R33.9 Retention of urine, unspecified (principal); R31.9 Hematuria, unspecified; E11.9 Type 2 diabetes mellitus without complications; I50.9 Heart failure, unspecified; Z86.718 Personal history of other venous thrombosis and embolism; Z79.899 Other long term (current) drug therapy
CPT/HCPCS: 51702; 74176; 81001; 96372; 99285; J0696

== ENCOUNTER → 2024-02-04 | Outpatient (CLI) | payer OTHER ==
[~2024-02-04] MED LIST changes: +BACDST PO
[2024-02-04 06:57] LABS: Urine Bacteria None Seen /hpf (None Seen)
[2024-02-04 07:22] LABS: Basophils # (auto) 0 10 ^3/uL (0-0.2); Eosinophils # (auto) 0 10 ^3/uL (0-0.8); Hemoglobin 17.4 g/dL (13.5-17.5); Lymphocytes # (auto) 0.7 10 ^3/uL (0.4-5.4); Monocytes # (auto) 0.3 10 ^3/uL (0-1.3); Neutrophils # (auto) 2.8 10 ^3/uL (1.6-8.6); Nucleated Red Blood Cells % 0.1 %; Red Cell Distribution Width 13.5 % (11.8-14.3)
[2024-02-04 07:24] LABS: Basophils % (auto) 0.2 % (0.0-2.0); Eosinophils % (auto) 1.1 % (0.0-7.0); Hematocrit 49.5 % (41.0-53.0); Lymphocytes % (auto) 18.3 % (10.0-50.0); Mean Corpuscular Hemoglobin 34.7 pg (28.0-32.0); Mean Corpuscular Hgb Conc. 35.2 g/dL (32.0-36.0); Mean Corpuscular Volume 98.5 fL (80.0-100.0); Monocytes % (auto) 7.9 % (0.0-12.0); Neutrophils % (auto) 72.5 % (37.0-80.0); Platelet Count (auto) 158 10^3/uL (140-450); Red Blood Cells 5.03 10^6/uL (4.5-5.90); White Blood Cell 3.9 10^3/uL (4.4-10.8)
[2024-02-04 07:42] LABS: Urine Blood 3+ /uL (Negative); Urine Clarity Clear (Clear); Urine Color Yellow (Yellow); Urine Mucus FEW (None Seen); Urine Protein, UAD TRACE (Negative); Urine Urobilinogen Normal (Negative); Urine WBC 6 /hpf (0 - 3); Urine pH 6.5 (5.0-9.0)
[2024-02-04 08:09] LABS: Alanine Aminotransferase 12 U/L (7-40); Albumin 4.6 g/dL (3.2-4.8); Alkaline Phosphatase 78 U/L (46-116); Anion Gap 7 (5-15); Aspartate Aminotransferase 23 U/L (13-40); BUN/Creatinine Ratio 9.3 (10.0-20.0); Blood Urea Nitrogen 10 mg/dL (9-23); Calcium 9.9 mg/dL (8.7-10.4); Carbon Dioxide 27 mmol/L (20-30); Chloride 104 mmol/L (98-107); Glucose 97 mg/dL (74-106); LDL Cholesterol 85 mg/dL (< 100); Magnesium 2.2 mg/dL (1.6-2.6); Potassium 4.9 mmol/L (3.5-5.1); Sodium 138 mmol/L (136-145); Triglycerides 100 mg/dL (< 150)
[2024-02-04 08:10] LABS: Bilirubin, Total 2.6 mg/dL (0.2-1.0); Cholesterol 151 mg/dL (< 200); HDL Cholesterol 43 mg/dL (40-59); Total Protein 7.6 g/dL (5.7-8.2)
[2024-02-04 13:12] LABS: Folate (Folic Acid) 12.2 ng/mL (>5.38)
== END | disposition home or self-care (01) ==
LOC: LAB 06:08
PROVIDERS: ATTEND Internal Medicine
DX: I11.0 Hypertensive heart disease with heart failure (principal); I50.9 Heart failure, unspecified; N13.8 Other obstructive and reflux uropathy; N40.1 Benign prostatic hyperplasia with lower urinary tract symptoms; J44.9 Chronic obstructive pulmonary disease, unspecified
CPT/HCPCS: 36415; 80053; 80061; 81001; 82306; 82607; 82746; 83036; 83735; 84443; 84550; 85025; 87086

== ENCOUNTER 2024-02-29 14:12 | Emergency (ER) | payer OTHER ==
[~2024-02-29] VITALS: Ht 162.6 cm; Wt 90.7 kg
[2024-02-29 15:00] VITALS: TEMP 98.2
[2024-02-29 15:02] VITALS: PULSE 80; RESP 18; O2SAT 98
[2024-02-29 15:19] LABS: Urine Bacteria None Seen /hpf (None Seen)
[2024-02-29 15:27] LABS: Basophils # (auto) 0 10 ^3/uL (0-0.2); Basophils % (auto) 0.2 % (0.0-2.0); Eosinophils # (auto) 0 10 ^3/uL (0-0.8); Eosinophils % (auto) 0.8 % (0.0-7.0); Hematocrit 45.8 % (41.0-53.0); Hemoglobin 15.6 g/dL (13.5-17.5); Lymphocytes # (auto) 0.5 10 ^3/uL (0.4-5.4); Lymphocytes % (auto) 13.7 % (10.0-50.0); Mean Corpuscular Hemoglobin 33.6 pg (28.0-32.0); Mean Corpuscular Hgb Conc. 34.1 g/dL (32.0-36.0); Mean Corpuscular Volume 98.7 fL (80.0-100.0); Monocytes # (auto) 0.4 10 ^3/uL (0-1.3); Monocytes % (auto) 9.4 % (0.0-12.0); Neutrophils % (auto) 75.9 % (37.0-80.0); Nucleated Red Blood Cells % 0.1 %; Platelet Count (auto) 169 10^3/uL (140-450); Red Blood Cells 4.65 10^6/uL (4.5-5.90); Red Cell Distribution Width 13.5 % (11.8-14.3); White Blood Cell 3.9 10^3/uL (4.4-10.8)
[2024-02-29 15:30] LABS: Urine Blood 1+ /uL (Negative); Urine Budding Yeast FEW /hpf (None Seen); Urine Clarity Turbid (Clear); Urine Color Yellow (Yellow); Urine Mucus FEW (None Seen); Urine Protein, UAD 1+ (Negative); Urine Specific Gravity 1.017 (1.001-1.035); Urine Urobilinogen 3 mg/dL (Negative); Urine WBC 118 /hpf (0 - 3)
[2024-02-29 15:36] LABS: Chloride 107 mmol/L (98-107); Potassium 3.7 mmol/L (3.5-5.1); Sodium 140 mmol/L (136-145)
[2024-02-29 15:37] LABS: Anion Gap 6 (5-15); Calcium 9.7 mg/dL (8.7-10.4); Carbon Dioxide 27 mmol/L (20-31)
[2024-02-29 15:42] LABS: BUN/Creatinine Ratio 16.3 (10.0-20.0); Blood Urea Nitrogen 13 mg/dL (9-23); Glucose 136 mg/dL (74-106)
[2024-02-29 16:13] VITALS: BP 128/71; PULSE 75; RESP 16; O2SAT 98
== END 2024-02-29 16:14 | disposition home or self-care (01) ==
LOC: ER 14:12
DX: N40.1 Benign prostatic hyperplasia with lower urinary tract symptoms (principal); R33.8 Other retention of urine; E11.9 Type 2 diabetes mellitus without complications; I50.9 Heart failure, unspecified; Z79.899 Other long term (current) drug therapy
CPT/HCPCS: 36415; 80048; 81001; 85025

== ENCOUNTER 2024-03-05 10:05 | Inpatient (IN) | payer OTHER ==
[~2024-03-05] VITALS: Ht 177.8 cm; Wt 87.5 kg
[2024-03-05 11:35] LABS: Basophils # (auto) 0 10 ^3/uL (0-0.2); Basophils % (auto) 0.1 % (0.0-2.0); Eosinophils # (auto) 0 10 ^3/uL (0-0.8); Eosinophils % (auto) 0.1 % (0.0-7.0); Hematocrit 44.1 % (41.0-53.0); Hemoglobin 15.1 g/dL (13.5-17.5); Lymphocytes # (auto) 0.4 10 ^3/uL (0.4-5.4); Lymphocytes % (auto) 6.1 % (10.0-50.0); Mean Corpuscular Hemoglobin 33.9 pg (28.0-32.0); Mean Corpuscular Hgb Conc. 34.3 g/dL (32.0-36.0); Mean Corpuscular Volume 98.8 fL (80.0-100.0); Monocytes # (auto) 0.5 10 ^3/uL (0-1.3); Monocytes % (auto) 7.8 % (0.0-12.0); Neutrophils # (auto) 5.7 10 ^3/uL (1.6-8.6); Neutrophils % (auto) 85.9 % (37.0-80.0); Platelet Count (auto) 203 10^3/uL (140-450); Red Blood Cells 4.46 10^6/uL (4.5-5.90); Red Cell Distribution Width 13.6 % (11.8-14.3); White Blood Cell 6.7 10^3/uL (4.4-10.8)
[2024-03-05 11:54] LABS: Alanine Aminotransferase 14 U/L (7-40); Albumin 4.1 g/dL (3.2-4.8); Alkaline Phosphatase 95 U/L (46-116); Anion Gap 6 (5-15); Aspartate Aminotransferase 20 U/L (13-40); BUN/Creatinine Ratio 15.8 (10.0-20.0); Bilirubin, Total 1.7 mg/dL (0.2-1.0); Blood Urea Nitrogen 12 mg/dL (9-23); Calcium 9.4 mg/dL (8.7-10.4); Carbon Dioxide 26 mmol/L (20-31); Chloride 107 mmol/L (98-107); Glucose 187 mg/dL (74-106); Potassium 3.7 mmol/L (3.5-5.1); Sodium 139 mmol/L (136-145); Total Protein 7.4 g/dL (5.7-8.2)
[2024-03-05] MEDS: FUROSEMIDE 20 MG/2 ML VIAL IV ONE (12:25)
[2024-03-05] MEDS: cefTRIAXone 1GM/50ML D5W 50 ML IV ONE (12:25)
[2024-03-05 13:30] VITALS: O2SAT 93
[2024-03-05 13:45] LABS: Urine Bacteria None Seen /hpf (None Seen)
[2024-03-05] MEDS ORDERED: ONDANSETRON HCL 4 MG/2 ML VIAL IV PRN (13:45)
[2024-03-05] MEDS: SODIUM CHLOR 0.9% PF (SALINE LOCK) 10ML VIAL/SYR IV SCH (14:18)
[2024-03-05] MEDS: ceFAZolin 1GM/50ML 50 ML IV SCH (14:18)
[2024-03-05 14:26] LABS: Urine Blood 2+ /uL (Negative); Urine Clarity Clear (Clear); Urine Color Light-Yellow (Yellow); Urine Mucus FEW (None Seen); Urine Protein, UAD 1+ (Negative); Urine Specific Gravity 1.012 (1.001-1.035); Urine Urobilinogen Normal (Negative); Urine WBC 59 /hpf (0 - 3)
[2024-03-05 14:44] LABS: Erythrocyte Sedimentation Rate 60 mm/hr (0-20)
[2024-03-05] MEDS: IOHEXOL 350 MG/ML 100ML IJ ONE (14:56)
[2024-03-05 16:57] VITALS: BP 124/62; PULSE 84; RESP 16; TEMP 98.2; O2SAT 94
[2024-03-05] MEDS: HYDROmorphone HCL 2 MG/ML VL/or syr IV PRN (17:31)
[2024-03-05 20:00] VITALS: PULSE 86; RESP 19; O2SAT 89
[2024-03-05] MEDS: HYDROcodone-ACET 5/325MG TAB PO PRN (20:23)
[2024-03-05 21:00] VITALS: BP 118/62; PULSE 86; RESP 19; TEMP 98.4; O2SAT 89
[2024-03-06] VITALS (7 sets, daily range): BP systolic 113–127; BP diastolic 59–78; PULSE 65–72; RESP 17–20; TEMP 97.6–98.3; O2SAT 93–97
[2024-03-06 05:40] LABS: Basophils # (auto) 0 10 ^3/uL (0-0.2); Basophils % (auto) 0.3 % (0.0-2.0); Eosinophils # (auto) 0.1 10 ^3/uL (0-0.8); Eosinophils % (auto) 1.3 % (0.0-7.0); Hematocrit 42.6 % (41.0-53.0); Hemoglobin 14.5 g/dL (13.5-17.5); Lymphocytes # (auto) 0.7 10 ^3/uL (0.4-5.4); Lymphocytes % (auto) 14.9 % (10.0-50.0); Mean Corpuscular Hemoglobin 33.4 pg (28.0-32.0); Mean Corpuscular Volume 98.1 fL (80.0-100.0); Monocytes # (auto) 0.6 10 ^3/uL (0-1.3); Monocytes % (auto) 12.1 % (0.0-12.0); Neutrophils # (auto) 3.5 10 ^3/uL (1.6-8.6); Neutrophils % (auto) 71.4 % (37.0-80.0); Nucleated Red Blood Cells % 0.2 %; Platelet Count (auto) 200 10^3/uL (140-450); Red Blood Cells 4.34 10^6/uL (4.5-5.90); Red Cell Distribution Width 13.3 % (11.8-14.3); White Blood Cell 4.9 10^3/uL (4.4-10.8)
[2024-03-06 05:57] LABS: Alanine Aminotransferase 10 U/L (7-40); Alkaline Phosphatase 87 U/L (46-116); Anion Gap 6 (5-15); BUN/Creatinine Ratio 10.5 (10.0-20.0); Blood Urea Nitrogen 12 mg/dL (9-23); Calcium 9.2 mg/dL (8.7-10.4); Carbon Dioxide 32 mmol/L (20-31); Chloride 104 mmol/L (98-107); Glucose 118 mg/dL (74-106); Potassium 3.5 mmol/L (3.5-5.1); Sodium 142 mmol/L (136-145)
[2024-03-06 05:58] LABS: Albumin 3.8 g/dL (3.2-4.8); Aspartate Aminotransferase 15 U/L (13-40); Bilirubin, Total 1.6 mg/dL (0.2-1.0); Total Protein 6.8 g/dL (5.7-8.2)
[2024-03-06] MEDS: ENOXAPARIN SOD 40 MG/0.4 ML SYRINGE SC SCH (09:25)
[2024-03-06] MEDS: DOCUSATE SOD 100 MG CAP PO PRN (09:25)
[2024-03-06] MEDS: PHENAZOPYRIDINE HCL 100 MG TAB PO SCH (17:55)
[2024-03-07 05:48] VITALS: BP 117/68; PULSE 70; RESP 19; TEMP 97.4; O2SAT 95
[2024-03-07 06:05] LABS: Basophils # (auto) 0 10 ^3/uL (0-0.2); Basophils % (auto) 0.2 % (0.0-2.0); Eosinophils # (auto) 0.1 10 ^3/uL (0-0.8); Eosinophils % (auto) 1.8 % (0.0-7.0); Hematocrit 45.1 % (41.0-53.0); Hemoglobin 15.5 g/dL (13.5-17.5); Lymphocytes # (auto) 0.7 10 ^3/uL (0.4-5.4); Lymphocytes % (auto) 17.2 % (10.0-50.0); Mean Corpuscular Hgb Conc. 34.4 g/dL (32.0-36.0); Mean Corpuscular Volume 98.8 fL (80.0-100.0); Monocytes # (auto) 0.4 10 ^3/uL (0-1.3); Neutrophils # (auto) 3.1 10 ^3/uL (1.6-8.6); Neutrophils % (auto) 71.8 % (37.0-80.0); Platelet Count (auto) 218 10^3/uL (140-450); Red Blood Cells 4.56 10^6/uL (4.5-5.90); Red Cell Distribution Width 13.3 % (11.8-14.3); White Blood Cell 4.3 10^3/uL (4.4-10.8)
[2024-03-07 06:15] LABS: Alkaline Phosphatase 97 U/L (46-116); Anion Gap 4 (5-15); BUN/Creatinine Ratio 18.1 (10.0-20.0); Blood Urea Nitrogen 17 mg/dL (9-23); Calcium 9.3 mg/dL (8.7-10.4); Carbon Dioxide 30 mmol/L (20-31); Chloride 107 mmol/L (98-107); Glucose 133 mg/dL (74-106); Potassium 3.8 mmol/L (3.5-5.1); Sodium 141 mmol/L (136-145)
[2024-03-07 06:16] LABS: Albumin 3.9 g/dL (3.2-4.8); Aspartate Aminotransferase 16 U/L (13-40)
[2024-03-07 06:17] LABS: Bilirubin, Total 1.4 mg/dL (0.2-1.0); Total Protein 6.9 g/dL (5.7-8.2)
[2024-03-07 06:35] LABS: Alanine Aminotransferase < 9 U/L (7-40)
[2024-03-07] MEDS: cefTRIAXone 1GM/50ML D5W 50 ML IV SCH (08:35)
[2024-03-07 09:00] VITALS: BP 107/63; PULSE 66; RESP 16; TEMP 97.8; O2SAT 97
[2024-03-07 10:07] LABS: PSA Free 1.96 ng/mL; Prostate Specific Antigen 11.5 ng/mL (0.0-4.0)
[2024-03-07 12:50] VITALS: BP 114/69; PULSE 66; RESP 16; TEMP 97.6; O2SAT 96
[2024-03-07 17:00] VITALS: BP 127/71; PULSE 70; RESP 17; TEMP 98; O2SAT 95
[2024-03-07 20:00] VITALS: PULSE 69; RESP 18; O2SAT 95
[2024-03-07 21:00] VITALS: BP 109/57; PULSE 69; RESP 18; TEMP 97.3; O2SAT 95
[2024-03-08] VITALS (7 sets, daily range): BP systolic 104–125; BP diastolic 60–74; PULSE 65–72; RESP 17–21; TEMP 97.3–100.2; O2SAT 92–96
[2024-03-08 06:29] LABS: Basophils # (auto) 0 10 ^3/uL (0-0.2); Basophils % (auto) 0.1 % (0.0-2.0); Eosinophils # (auto) 0.1 10 ^3/uL (0-0.8); Eosinophils % (auto) 1.7 % (0.0-7.0); Hematocrit 46.9 % (41.0-53.0); Hemoglobin 15.8 g/dL (13.5-17.5); Lymphocytes # (auto) 0.5 10 ^3/uL (0.4-5.4); Lymphocytes % (auto) 13.9 % (10.0-50.0); Mean Corpuscular Hemoglobin 33.4 pg (28.0-32.0); Mean Corpuscular Hgb Conc. 33.7 g/dL (32.0-36.0); Monocytes # (auto) 0.3 10 ^3/uL (0-1.3); Monocytes % (auto) 7.5 % (0.0-12.0); Neutrophils # (auto) 2.9 10 ^3/uL (1.6-8.6); Neutrophils % (auto) 76.8 % (37.0-80.0); Nucleated Red Blood Cells % 0.1 %; Platelet Count (auto) 231 10^3/uL (140-450); Red Blood Cells 4.74 10^6/uL (4.5-5.90); Red Cell Distribution Width 13.6 % (11.8-14.3); White Blood Cell 3.8 10^3/uL (4.4-10.8)
[2024-03-08 06:47] LABS: Alanine Aminotransferase 13 U/L (7-40); Albumin 3.9 g/dL (3.2-4.8); Alkaline Phosphatase 117 U/L (46-116); Anion Gap 5 (5-15); Aspartate Aminotransferase 28 U/L (13-40); BUN/Creatinine Ratio 16.7 (10.0-20.0); Bilirubin, Total 1.3 mg/dL (0.2-1.0); Blood Urea Nitrogen 15 mg/dL (9-23); Calcium 9.3 mg/dL (8.7-10.4); Carbon Dioxide 30 mmol/L (20-31); Chloride 106 mmol/L (98-107); Glucose 116 mg/dL (74-106); Sodium 141 mmol/L (136-145); Total Protein 7.1 g/dL (5.7-8.2)
[2024-03-08] MEDS: ENOXAPARIN SOD 100 MG/1 ML SYRINGE SC SCH (22:27)
[2024-03-09] VITALS (7 sets, daily range): BP systolic 103–169; BP diastolic 61–79; PULSE 60–78; RESP 16–38; TEMP 96.8–99.3; O2SAT 92–98
[2024-03-09 06:07] LABS: Basophils # (auto) 0 10 ^3/uL (0-0.2); Basophils % (auto) 0.2 % (0.0-2.0); Eosinophils # (auto) 0.1 10 ^3/uL (0-0.8); Eosinophils % (auto) 2.2 % (0.0-7.0); Hematocrit 47.3 % (41.0-53.0); Hemoglobin 15.9 g/dL (13.5-17.5); Lymphocytes # (auto) 0.6 10 ^3/uL (0.4-5.4); Lymphocytes % (auto) 18.4 % (10.0-50.0); Mean Corpuscular Hemoglobin 33.3 pg (28.0-32.0); Mean Corpuscular Hgb Conc. 33.7 g/dL (32.0-36.0); Mean Corpuscular Volume 98.8 fL (80.0-100.0); Monocytes # (auto) 0.3 10 ^3/uL (0-1.3); Monocytes % (auto) 8.3 % (0.0-12.0); Neutrophils # (auto) 2.5 10 ^3/uL (1.6-8.6); Neutrophils % (auto) 70.9 % (37.0-80.0); Nucleated Red Blood Cells % 0.3 %; Platelet Count (auto) 232 10^3/uL (140-450); Red Blood Cells 4.79 10^6/uL (4.5-5.90); Red Cell Distribution Width 13.1 % (11.8-14.3); White Blood Cell 3.5 10^3/uL (4.4-10.8)
[2024-03-09 06:26] LABS: Alanine Aminotransferase 20 U/L (7-40); Alkaline Phosphatase 130 U/L (46-116); Anion Gap 5 (5-15); Aspartate Aminotransferase 33 U/L (13-40); BUN/Creatinine Ratio 18.2 (10.0-20.0); Bilirubin, Total 1.3 mg/dL (0.2-1.0); Blood Urea Nitrogen 16 mg/dL (9-23); Calcium 9.7 mg/dL (8.7-10.4); Carbon Dioxide 32 mmol/L (20-31); Chloride 104 mmol/L (98-107); Glucose 116 mg/dL (74-106); Potassium 4.1 mmol/L (3.5-5.1); Sodium 141 mmol/L (136-145); Total Protein 7.2 g/dL (5.7-8.2)
[2024-03-10] VITALS (7 sets, daily range): BP systolic 104–115; BP diastolic 57–72; PULSE 60–71; RESP 17–21; TEMP 96.5–98; O2SAT 95–99
[2024-03-10 05:58] LABS: Basophils # (auto) 0 10 ^3/uL (0-0.2); Basophils % (auto) 0.1 % (0.0-2.0); Eosinophils # (auto) 0.1 10 ^3/uL (0-0.8); Eosinophils % (auto) 1.9 % (0.0-7.0); Hematocrit 46.2 % (41.0-53.0); Hemoglobin 15.8 g/dL (13.5-17.5); Lymphocytes # (auto) 0.7 10 ^3/uL (0.4-5.4); Lymphocytes % (auto) 19.1 % (10.0-50.0); Mean Corpuscular Hemoglobin 33.8 pg (28.0-32.0); Mean Corpuscular Hgb Conc. 34.3 g/dL (32.0-36.0); Mean Corpuscular Volume 98.7 fL (80.0-100.0); Monocytes # (auto) 0.3 10 ^3/uL (0-1.3); Monocytes % (auto) 9.3 % (0.0-12.0); Neutrophils # (auto) 2.5 10 ^3/uL (1.6-8.6); Neutrophils % (auto) 69.6 % (37.0-80.0); Nucleated Red Blood Cells % 0.2 %; Platelet Count (auto) 216 10^3/uL (140-450); Red Blood Cells 4.68 10^6/uL (4.5-5.90); Red Cell Distribution Width 13.3 % (11.8-14.3); White Blood Cell 3.6 10^3/uL (4.4-10.8)
[2024-03-10 06:08] LABS: Alanine Aminotransferase 41 U/L (7-40); Alkaline Phosphatase 126 U/L (46-116); Anion Gap 6 (5-15); Aspartate Aminotransferase 65 U/L (13-40); BUN/Creatinine Ratio 17.2 (10.0-20.0); Blood Urea Nitrogen 17 mg/dL (9-23); Calcium 9.4 mg/dL (8.7-10.4); Carbon Dioxide 33 mmol/L (20-31); Chloride 102 mmol/L (98-107); Glucose 134 mg/dL (74-106); Potassium 3.7 mmol/L (3.5-5.1); Sodium 141 mmol/L (136-145)
[2024-03-10 06:09] LABS: Bilirubin, Total 1.6 mg/dL (0.2-1.0); Total Protein 7.3 g/dL (5.7-8.2)
[2024-03-10] MEDS: ADENOSINE 74 MG in GIVE UN-DILUTED 0 ML IV STA (13:03)
[2024-03-11] VITALS (7 sets, daily range): BP systolic 93–128; BP diastolic 57–69; PULSE 59–74; RESP 16–20; TEMP 97.5–98.5; O2SAT 91–96
[2024-03-11] MEDS ORDERED: METOCLOPRAMIDE HCL 5MG/ml INJ 2ml VIAL IV ONE (09:15)
[2024-03-11] MEDS: LACTULOSE 20Gm/30ML SOLN PO SCH (11:20)
[2024-03-11 15:37] LABS: INR 1.21 (0.9-1.15); Partial Thromboplastin Time 30.2 SEC (24.5-34.5); Prothrombin Time 12.6 sec (9.3-11.8)
[2024-03-11 17:06] LABS: Anticardiolipin IgG Antibody <9 GPL U/mL (0-14); Anticardiolipin IgM Antibody <9 MPL U/mL (0-12)
[2024-03-11] MEDS: ACETAMINOPHEN 325 MG TAB PO PRN (21:19)
[2024-03-12] VITALS (8 sets, daily range): BP systolic 103–148; BP diastolic 53–75; PULSE 60–81; RESP 16–20; TEMP 97.4–98.2; O2SAT 92–97
[2024-03-12] MEDS ORDERED: levoFLOXacin 500MG 100 ML IV ONE (11:49)
[2024-03-12] MEDS ORDERED: MORPHINE SULFATE 4 MG/ML SYR/VIAL IV PRN (13:00)
[2024-03-12] MEDS ORDERED: HYDROmorphone HCL 2 MG/ML VL/or syr IV PRN ×2 (13:00)
[2024-03-12] MEDS ORDERED: ONDANSETRON HCL 4 MG/2 ML VIAL IV ONE (13:00)
[2024-03-12] MEDS ORDERED: SUGAMMADEX 200mg/2ml Vial (100MG/ML) IV ONE (13:49)
[2024-03-12] MEDS ORDERED: fentaNYL CITRATE 100 MCG/2 ML VL ONE (13:50)
[2024-03-12] MEDS ORDERED: NALOXONE HCL 1MG/ML 2ML SYRINGE ONE (14:09)
[2024-03-12] MEDS: HYDROmorphone HCL 2 MG/ML VL/or syr ONE (14:15)
[2024-03-12] MEDS ORDERED: MORPHINE SULFATE INJ 2 MG/ml SYRG ONE (14:57)
[2024-03-12] MEDS: HYDROmorphone HCL 2 MG/ML VL/or syr IV ONE (16:11)
[2024-03-12 17:06] LABS: Antithrombin III Antigen 101 % (72-124); Dilute Prothrombin Time(dPT) 62.5 sec (0.0-47.6); PTT-LA 45.1 sec (0.0-43.5); Protein S Antigen Free 53 % (61-136); Proten S Antigen Total 66 % (60-150); Thrombin Time 18.7 sec (0.0-23.0); dPT Confirm Ratio 1.11 Ratio (0.00-1.34); dRVVT 59.3 sec (0.0-47.0); dRVVT Mix 38.9 sec (0.0-40.4)
[2024-03-12] MEDS: OXYCODONE W/ ACETAMINOPHEN 5/325MG TABLET PO PRN (17:39)
[2024-03-12 19:06] LABS: PTT-LA Mix 39.6 sec (0.0-40.5)
[2024-03-13] VITALS (10 sets, daily range): BP systolic 108–145; BP diastolic 67–76; PULSE 64–86; RESP 16–19; TEMP 97.8–98.5; O2SAT 94–98
[2024-03-13 05:42] LABS: Basophils # (auto) 0 10 ^3/uL (0-0.2); Basophils % (auto) 0.2 % (0.0-2.0); Eosinophils # (auto) 0 10 ^3/uL (0-0.8); Eosinophils % (auto) 0.9 % (0.0-7.0); Hematocrit 45.2 % (41.0-53.0); Hemoglobin 15.3 g/dL (13.5-17.5); Lymphocytes # (auto) 0.6 10 ^3/uL (0.4-5.4); Lymphocytes % (auto) 15.9 % (10.0-50.0); Mean Corpuscular Hemoglobin 33.3 pg (28.0-32.0); Mean Corpuscular Hgb Conc. 33.8 g/dL (32.0-36.0); Mean Corpuscular Volume 98.5 fL (80.0-100.0); Monocytes # (auto) 0.5 10 ^3/uL (0-1.3); Monocytes % (auto) 11.2 % (0.0-12.0); Neutrophils # (auto) 2.9 10 ^3/uL (1.6-8.6); Neutrophils % (auto) 71.8 % (37.0-80.0); Nucleated Red Blood Cells % 0.1 %; Platelet Count (auto) 192 10^3/uL (140-450); Red Blood Cells 4.58 10^6/uL (4.5-5.90); Red Cell Distribution Width 13.1 % (11.8-14.3)
[2024-03-13 05:50] LABS: Chloride 106 mmol/L (98-107); Potassium 3.9 mmol/L (3.5-5.1); Sodium 140 mmol/L (136-145)
[2024-03-13 05:51] LABS: Anion Gap 4 (5-15); Carbon Dioxide 30 mmol/L (20-31)
[2024-03-13 05:56] LABS: BUN/Creatinine Ratio 17.7 (10.0-20.0); Blood Urea Nitrogen 14 mg/dL (9-23); Glucose 118 mg/dL (74-106)
[2024-03-13] MEDS ORDERED: CEFD300C2 PO (08:53)
[2024-03-13] MEDS ORDERED: DOCU-94 PO (08:53)
[2024-03-13] MEDS ORDERED: APIX5TAB PO (08:53)
[2024-03-13] MEDS ORDERED: PERCOT PO (08:53)
[2024-03-14 01:00] VITALS: BP 142/78; PULSE 69; RESP 18; TEMP 97.6; O2SAT 98
[2024-03-14 05:00] VITALS: BP 120/76; PULSE 58; RESP 18; TEMP 97.5; O2SAT 100
[2024-03-14 08:00] VITALS: PULSE 60; RESP 18; O2SAT 96
[2024-03-14 08:15] VITALS: BP 111/63; PULSE 60; RESP 18; TEMP 97.6; O2SAT 96
[2024-03-14 13:07] LABS: Hexagonal Phase Phospholipid 4 sec (0-11)
[2024-03-14 15:07] LABS: Lupus Interpretation Comment: (.)
[2024-03-15 11:07] LABS: Protein C Antigen 65 % (60-150)
== END 2024-03-14 11:20 | disposition home or self-care (01) | DRG 713 ==
LOC: ER 10:05 → EAST 13:39 → ER 13:39
PROVIDERS: ADMIT Internal Medicine; ATTEND Nurse Practitioner Acute Care
PROC: 0V508ZZ Destruction of Prostate, Via Natural or Artificial Opening Endoscopic (ICD-10-PCS; principal; 2024-03-05)
DX: N40.1 Benign prostatic hyperplasia with lower urinary tract symptoms (principal); I82.221 Chronic embolism and thrombosis of inferior vena cava; L97.919 Non-pressure chronic ulcer of unspecified part of right lower leg with unspecified severity; L97.929 Non-pressure chronic ulcer of unspecified part of left lower leg with unspecified severity; I82.403 Acute embolism and thrombosis of unspecified deep veins of lower extremity, bilateral; N32.0 Bladder-neck obstruction; N30.90 Cystitis, unspecified without hematuria; E66.9 Obesity, unspecified; Z68.27 Body mass index [BMI] 27.0-27.9, adult; R33.8 Other retention of urine; I50.9 Heart failure, unspecified; E11.51 Type 2 diabetes mellitus with diabetic peripheral angiopathy without gangrene; K59.00 Constipation, unspecified; K64.9 Unspecified hemorrhoids; Z83.3 Family history of diabetes mellitus; I87.2 Venous insufficiency (chronic) (peripheral); I27.21 Secondary pulmonary arterial hypertension; T45.515A Adverse effect of anticoagulants, initial encounter; Y92.89 Other specified places as the place of occurrence of the external cause
CPT/HCPCS: 36415; 75635; 76705; 78452; 80048; 80053; 81001; 81241; 84154; 85025; 85301; 85302; 85305; 85306; 85610; 85613; 85652; 85670; 85705; 85730; 85732; 86141; 86147; 87040; 87086; 93017; 93306; 96365; 96375; G0378; J0153; J1956

== ENCOUNTER 2024-03-20 12:31 | Inpatient (IN) | payer OTHER ==
[~2024-03-20] VITALS: Ht 180.3 cm; Wt 89.7 kg
[~2024-03-20 12:31] MED LIST changes: -BACDST PO; +CEFD300C2 PO; -CEPH500C PO; -CLIN1CAP70 PO; -COUMPOW OR; +DOCU-94 PO; -DOXY1CAP57 PO; +PERCOT PO
[2024-03-20 13:28] VITALS: PULSE 72; RESP 20; O2SAT 93
--- NOTE | 2024-03-20 13:28 | DVHINCON2 ---
Date of service: Mar 20, 2024 Referring Physician Hospitalist Reason for Consultation Gross hematuria History of Present Illness Patient underwent trans urethral resection of the prostate gland on 03/12/2024. Postoperatively he continues to require Koenig catheter for gross hematuria. He is admitted to [facility] today to undergo a urological procedure via cystoscopy with clot evacuation and fulguration to manage his hematuria Past Medical History BPH Past Surgical History Recent TURP Family History: Family history: Diabetes mellitus Allergies: Coded Allergies: NO KNOWN ALLERGIES (Unverified , 08/30/13) Home Meds Active Scripts Cefdinir (Cefdinir) 300 Mg Cap, 1 CAP PO BID for 5 Days, #10 CAP Prov:MARIA GUADALUPE VILLA NP 03/13/24 Docusate Sodium (Colace) 100 Mg Cap, 1 CAP PO BID for 14 Days, #30 CAP Prov:MARIA GUADALUPE VILLA NP 03/13/24 Oxycodone W/ Acetaminophen (Percocet 5/325MG) 1 Tab Tb, 1 TAB PO TID for 5 Days, #15 TAB Prov:MARIA GUADALUPE VILLA NP 03/13/24 Apixaban Base (ELIQUIS) 5 Mg Tab, 1 TAB PO BID for 60 Days, #120 TAB 1 Refill Prov:MARIA GUADALUPE VILLA NP 03/13/24 Reported Medications Montelukast Sodium (MONTELUKAST SODIUM) 4 Mg Chw, 1 TAB PO DAILY 08/26/22 Discontinued Scripts Sulfamethoxazole W/Trimethopri (Bactrim Ds Tablet) 1 Tab Tb, 1 TAB PO BID for 7 Days, #14 TAB Prov:MARIANO GO MD 01/29/24 Cephalexin Monohydrate (Cephalexin) 500 Mg Cap, 500 MG PO Q8HR for 7 Days, #21 CAP Prov:PITO HOFFMAN DO 04/17/23 Doxycycline Monohydrate (Doxycycline Monohydrate) 100 Mg Cap, 1 CAP PO BID for 7 Days, #14 CAP Prov:REGIS HERNANDEZ MD 09/01/22 Clindamycin Hcl (Clindamycin Hcl) 300 Mg Cap, 1 CAP PO TID for 7 Days, #21 CAP Prov:REGIS HERNANDEZ MD 09/01/22 Coumarin (Coumarin) Pow, 10 MG OR DAILY for 30 Days, #30 POW Prov:REGIS HERNANDEZ MD 09/01/22 Review of Systems Persistent, prolonged gross hematuria Vital Signs Stable Physical Exam Koenig catheter in place with dark hematuria urine Assessment Gross hematuria BPH Status post recent TURP Plan/Recommendation Cystoscopy with clot evacuation and fulguration Plan discussed with: Patient, Daughter MARIA LUZ HENDRICKS MD Mar 20, 2024 13:28
[2024-03-20] MEDS ORDERED: cefTRIAXone SOD 1,000 MG VL ONE (15:08)
[2024-03-20] MEDS ORDERED: MEPERIDINE HCL (50 MG/ML) 1 ML VIAL ONE (15:16)
[2024-03-20] MEDS ORDERED: fentaNYL CITRATE 100 MCG/2 ML VL ONE (15:16)
[2024-03-20] MEDS ORDERED: MIDAZOLAM HCL 2MG/2ML 2ml VIAL (1mg/ml) ONE (15:16)
[2024-03-20] MEDS ORDERED: ETOMIDATE (2MG/ML) 20ML VIAL IV ONE (15:40)
[2024-03-20] MEDS ORDERED: DexAMETHasone SOD PHOS 10MG/1ML VIAL INJ ONE (15:40)
[2024-03-20 16:58] VITALS: BP 130/85; PULSE 70; RESP 19; TEMP 97.8; O2SAT 93
[2024-03-20 20:00] VITALS: PULSE 76; RESP 76; O2SAT 89
[2024-03-20] MEDS ORDERED: HYDROmorphone HCL 2 MG/ML VL/or syr IV PRN (20:00)
[2024-03-20] MEDS ORDERED: NITROGLYCERIN 0.4 MG SL TAB SL PRN (20:15)
[2024-03-20] MEDS ORDERED: HYDROcodone-ACET 10/325MG TAB PO PRN (20:15)
[2024-03-20] MEDS ORDERED: MORPHINE SULFATE INJ 2 MG/ml SYRG IV PRN (20:15)
[2024-03-20] MEDS: HYDROcodone-ACET 5/325MG TAB PO PRN (20:33)
[2024-03-20 21:00] VITALS: BP 101/53; PULSE 76; RESP 18; TEMP 98.1; O2SAT 89
[2024-03-21 01:00] VITALS: BP 107/59; PULSE 62; RESP 17; TEMP 97.7; O2SAT 94
[2024-03-21 05:00] VITALS: BP 111/63; PULSE 63; RESP 17; TEMP 97.3; O2SAT 93
[2024-03-21 08:22] VITALS: BP 113/58; PULSE 70; RESP 17; TEMP 98; O2SAT 93
[2024-03-21 09:48] LABS: Basophils # (auto) 0 10 ^3/uL (0-0.2); Basophils % (auto) 0.3 % (0.0-2.0); Eosinophils # (auto) 0 10 ^3/uL (0-0.8); Hematocrit 43.4 % (41.0-53.0); Hemoglobin 14.7 g/dL (13.5-17.5); Lymphocytes # (auto) 0.6 10 ^3/uL (0.4-5.4); Lymphocytes % (auto) 16.8 % (10.0-50.0); Mean Corpuscular Hemoglobin 33.6 pg (28.0-32.0); Mean Corpuscular Volume 98.9 fL (80.0-100.0); Monocytes # (auto) 0.3 10 ^3/uL (0-1.3); Monocytes % (auto) 9.4 % (0.0-12.0); Neutrophils # (auto) 2.5 10 ^3/uL (1.6-8.6); Neutrophils % (auto) 72.5 % (37.0-80.0); Nucleated Red Blood Cells % 0.1 %; Platelet Count (auto) 246 10^3/uL (140-450); Red Blood Cells 4.38 10^6/uL (4.5-5.90); Red Cell Distribution Width 13.3 % (11.8-14.3); White Blood Cell 3.4 10^3/uL (4.4-10.8)
[2024-03-21 10:20] LABS: Alanine Aminotransferase 29 U/L (7-40); Albumin 3.7 g/dL (3.2-4.8); Alkaline Phosphatase 120 U/L (46-116); Anion Gap 4 (5-15); Aspartate Aminotransferase 23 U/L (13-40); BUN/Creatinine Ratio 9.5 (10.0-20.0); Blood Urea Nitrogen 8 mg/dL (9-23); Calcium 9.3 mg/dL (8.7-10.4); Carbon Dioxide 30 mmol/L (20-31); Chloride 104 mmol/L (98-107); Glucose 199 mg/dL (74-106); Potassium 4.5 mmol/L (3.5-5.1); Sodium 138 mmol/L (136-145)
[2024-03-21 10:21] LABS: Total Protein 6.8 g/dL (5.7-8.2)
[2024-03-21] MEDS: SODIUM CHLORIDE 0.9% 1,000 ML IV SCH (10:23)
--- NOTE | 2024-03-21 10:44 | DVHPN2 ---
Progress Note - Dictate Date Seen: Mar 21, 2024 Has the PT tested + for MRSA If YES, has PT been informed?: No Medical Necessity Reason Pt with a Central, PICC or Fol: Yes The following are medically ne: Koenig Catheter Medical Necessity Reason Gross hematuria has cleared with holding the Eliquis Subjective No new complaint. The family was at the bedside and I informed the daughter the patient's status. vital signs Vital Sign Date Time Temp Pulse Resp B/P (MAP) Pulse Ox O2 Delivery O2 Flow Rate FiO2 03/21/24 08:22 98.0 70 17 113/58 (76) 93 98.0 03/20/24 20:00 Room Air* 0 21 Total Intake and Output 03/20/24 03/20/24 03/21/24 15:00 23:00 07:00 Intake Total 0 ml 240 ml Output Total 350 ml 0 ml Balance -350 ml 240 ml medications Current Medications Medications Dose Ordered Sig/Allison Route Start Time Stop Time Status Last Admin Dose Admin Acetaminophen/ Hydrocodone Bitart 1 tab Q4HPRN PRN PO 03/20/24 20:00 03/20/24 20:33 1 TAB Hydromorphone HCl 0.25 mg Q2HPRN PRN IV 03/20/24 20:00 Nitroglycerin 0.4 mg Q5MINP PRN SL 03/20/24 20:15 Morphine Sulfate 2 mg Q30M PRN IV 03/20/24 20:15 Acetaminophen/ Hydrocodone Bitart 1 tab Q4HP PRN PO 03/20/24 20:15 Sodium Chloride 1,000 ml @ 60 mls/hr [id number] IV 03/21/24 09:30 objective Ko[address] catheter in place and the urine is clear now laboratory and microbiology Laboratory Tests 03/21/24 09:11 Test 03/21/24 09:11 Range/Units Serum Glucose 199 H 74-106 mg/dL Assessment/Plan Gross hematuria-resolved with holding Eliquis BPH Status post recent TURP I recommend holding the Eliquis for three days. Patient is scheduled to follow up with me in the clinic for catheter removal on Sunday Plan discussed with: Patient, Daughter MARIA ULZ HENDRICKS MD Mar 21, 2024 10:44
--- NOTE | 2024-03-21 10:46 | DVHDS2 ---
New Physician D'charge PN Admitting Diagnosis Admitting Diagnosis Gross hematuria Discharge Diagnosis Gross hematuria- Resolved with holding Eliquis Operations or Procedures None Reason(s) For Hospitalization Surgery Treatment Plan Discharge Condition of Discharge Good Disposition Home Discharge Instructions Diet: Regular Activity: Light activity Activity comment: Koenig catheter management Medications: Previously given Follow Up Care Follow Up/Referral: Follow up on 03/24/2024 at 9 am Discharge Statement: "Patient was advised to return to the ER or call 911 if any headaches, dizziness, shortness of breath, chest pain, abdominal pain, bleeding, fevers, or worsening of medical condition. Patient was counseled about treatment plan, medications, possible side effects, patientverbalized understanding. All questions were answered to the best of my ability. This discharge took greater then 30 minutes in planning, reviewing documentation, counseling the patient, and discussing with other team members." MARIA LUZ HENDRICKS MD Mar 21, 2024 10:46
--- NOTE | 2024-03-21 10:56 | DVHDSRES ---
Discharge Summary Date of Admission Resident Creating Document: CHARLIE LOJA RESIDENT Mar 20, 2024 at 12:58 Date of Discharge: Mar 21, 2024 Admitting Diagnosis Gross hematuria Wounds: No wounds present at this time. Labs/Diagnostic Data: Laboratory Results Test 03/21/24 09:11 White Blood Count 3.4 10^3/uL (4.4-10.8) Red Blood Count 4.38 10^6/uL (4.5-5.90) Hemoglobin 14.7 g/dL (13.5-17.5) Hematocrit 43.4 % (41.0-53.0) Mean Corpuscular Volume 98.9 fL (80.0-100.0) Mean Corpuscular Hemoglobin 33.6 pg (28.0-32.0) Mean Corpuscular Hemoglobin Concent 34.0 g/dL (32.0-36.0) Red Cell Distribution Width 13.3 % (11.8-14.3) Platelet Count 246 10^3/uL (140-450) Mean Platelet Volume 7.5 fL (6.9-10.8) Neutrophils (%) (Auto) 72.5 % (37.0-80.0) Lymphocytes (%) (Auto) 16.8 % (10.0-50.0) Monocytes (%) (Auto) 9.4 % (0.0-12.0) Eosinophils (%) (Auto) 1.0 % (0.0-7.0) Basophils (%) (Auto) 0.3 % (0.0-2.0) Neutrophils # (Auto) 2.5 10 ^3/uL (1.6-8.6) Lymphocytes # (Auto) 0.6 10 ^3/uL (0.4-5.4) Monocytes # (Auto) 0.3 10 ^3/uL (0-1.3) Eosinophils # (Auto) 0 10 ^3/uL (0-0.8) Basophils # (Auto) 0 10 ^3/uL (0-0.2) Nucleated Red Blood Cells 0.1 % Sodium Level 138 mmol/L (136-145) Potassium Level 4.5 mmol/L (3.5-5.1) Chloride Level 104 mmol/L (98-107) Carbon Dioxide Level 30 mmol/L (20-31) Anion Gap 4 (5-15) Blood Urea Nitrogen 8 mg/dL (9-23) Creatinine 0.84 mg/dL (0.700-1.30) Glomerular Filtration Rate Calc 90 mL/min (>90) BUN/Creatinine Ratio 9.5 (10.0-20.0) Serum Glucose 199 mg/dL (74-106) Calcium Level 9.3 mg/dL (8.7-10.4) Total Bilirubin 1.0 mg/dL (0.2-1.0) Aspartate Amino Transferase (AST) 23 U/L (13-40) Alanine Aminotransferase (ALT) 29 U/L (7-40) Alkaline Phosphatase 120 U/L (46-116) Total Protein 6.8 g/dL (5.7-8.2) Albumin 3.7 g/dL (3.2-4.8) Other Laboratory Tests 03/21/24 09:11 Brief Hx & Hospital Course: This is a 78-year-old male with past medical history of CHF, type 2 diabetes mellitus, BPH, 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 Was an initial plan to perform cystoscopy with clot evacuation and fulguration to manage his hematuria but once Eliquis was discontinued urine became clear. Patient was re- evaluated and stated that has no acute pain in the abdomen, fever, nausea, dysuria, or burning sensation during micturition at this time. Koenig bag was reassessed and was consistent with clear urine without any blood at this time. Urology saw the patient this morning and clear him to discharge discontinuing Eliquis at this time. Patient has an upcoming appointment with Urology on 03/24/2024 where Eliquis will be continued at that time. Patient will be discharged with a Koenig in place and most likely we will be removed on 03/24/2024 by Urology. Patient agrees and understands the plan. ROS Constitutional: Denies weight loss, fever and chills. HEENT: Denies changes in vision and hearing. Respiratory: Denies shortness of breath and cough Cardiovascular: Denies chest discomfort or palpitations GI: Denies abdominal pain, nausea, vomiting and diarrhea. : Denies dysuria and urinary frequency. Musculoskeletal: Denies myalgias and joint pain Skin: Denies rash and pruritus. Neurological: Denies dizziness, headache, vision or hearing problems Physical examination General: Patient alert and oriented in person, place and time. Patient following commands. HEENT: Normocephalic, atraumatic, moist mucous membranes Respiratory/pulmonary: Clear lungs bilaterally, vesicular murmurs present in almost all lung john, no associated crackles or wheezes. Cardiovascular: Normal heart sounds S1 and S2 with no associated murmurs Abdomen: Abdomen nondistended, there is no pain to palpation in any of the abdominal quadrants, Koenig bag has clear urine without evidence of blood at this time. no palpable masses. Extremities: There is no peripheral edema present at the lower extremities. Peripheral Pulses: 3+ Radial (R). 3+ Radial (L). 3+ Dorsalis pedis (R). 3+ Dorsalis pedis(L) Skin: No rashes or pruritus, there is no sacral edema present at this time. Neurological: Intact cranial nerves with no focal neurologic deficits Consults/Reason for consult UROLOGY for gross hematuria Operations or Procedures N/A Condition at Discharge: Good Final Diagnosis/Problems List Gross hematuria likely due to eliquis POA S/P transurethral resection of the prostate performed on 03/12/2024 Discharge Disposition: Home Discharge Instruct/Medications Diet: Regular Activity: Light activity Activity comment: Koenig catheter management Follow Up/Referral: Follow up on 03/24/2024 at 9 am Medications: Previously given Discharge Statement: "Patient was advised to return to the ER or call 911 if any headaches, dizziness, shortness of breath, chest pain, abdominal pain, bleeding, fevers, or worsening of medical condition. Patient was counseled about treatment plan, medications, possible side effects, patientverbalized understanding. All questions were answered to the best of my ability. This discharge took greater then 30 minutes in planning, reviewing documentation, counseling the patient, and discussing with other team members." ASSESSMENT ASSESSMENT Assessment Gross hematuria- Resolved with holding Eliquis Date of Service: Mar 21, 2024 Billing Provider: PABLO LI MD Common Visit Codes: 61441-KCZ/OBS DISCH DAY >30min CHARLIE LOJA RESIDENT Mar 21, 2024 10:56 PABLO LI MD Mar 25, 2024 14:14
[2024-03-21 12:50] VITALS: BP 107/65; PULSE 67; RESP 20; TEMP 97.9; O2SAT 92
[2024-03-21 13:19] VITALS: TEMP 36.6
== END 2024-03-21 13:30 | disposition home or self-care (01) | DRG 813 ==
LOC: WEST WING 12:58
PROVIDERS: ADMIT Internal Medicine; ATTEND Urology
DX: D68.32 Hemorrhagic disorder due to extrinsic circulating anticoagulants (principal); R31.0 Gross hematuria; N40.0 Benign prostatic hyperplasia without lower urinary tract symptoms; E11.9 Type 2 diabetes mellitus without complications; Z83.3 Family history of diabetes mellitus; Z79.2 Long term (current) use of antibiotics; Z79.899 Other long term (current) drug therapy; T45.515A Adverse effect of anticoagulants, initial encounter; Y92.89 Other specified places as the place of occurrence of the external cause
CPT/HCPCS: 36415; 80053; 85025; G0378; J0696; J1100; J2250

== ENCOUNTER → 2024-04-15 | Outpatient (CLI) | payer OTHER | END | disposition home or self-care (01) | LOC: LAB 08:46 | PROVIDERS: ATTEND Urology | DX: R97.20 Elevated prostate specific antigen [PSA] (principal) | CPT/HCPCS: 84153 ==

== ENCOUNTER → 2024-05-12 | Outpatient (CLI) | payer OTHER ==
--- NOTE | 2024-05-12 13:26 | DVH ---
Procedure: NM BONE WHOLE BODY Exam Date: 05/12/2024 10:18 AM Reason for study/Clinical History: PROSTATE CA/BODY SCAN Comparison Study: None available at time of dictation. Prior correlative imaging: CT scans dated 03/05/2024, 01/29/2024 Nuclear Medicine Whole Body Bone Scan Technique: Following the intravenous administration of 27.3 millicuries of technetium 99m labeled MDP, whole bod y images in the anterior and posterior projections were obtained 3 hours following the administration of radiopharmaceutical. Additional delayed camera views of the head and neck, torso and pelvis were also obtained. Findings: No suspicious activity in the axilla or axial skeleton noted. There is mild symmetric multifocal activity overlying both shoulders medial knees consistent with mil d degenerative change. The expected mild activity is noted overlying both kidneys and the bladder without evidence of obstru ction. Impression: 1. There is no evidence of focal increased uptake consistent with osteoblastic metastasis.
== END | disposition home or self-care (01) ==
LOC: XYW 08:04
PROVIDERS: ATTEND Urology
DX: C61 Malignant neoplasm of prostate (principal)
CPT/HCPCS: 78306; A9503

== ENCOUNTER → 2024-07-15 | Outpatient (CLI) | payer OTHER ==
[2024-07-15 06:28] LABS: Urine Bacteria None Seen /hpf (None Seen)
[2024-07-15 07:12] LABS: Basophils # (auto) 0 10 ^3/uL (0-0.2); Basophils % (auto) 0.3 % (0.0-2.0); Eosinophils # (auto) 0 10 ^3/uL (0-0.8); Eosinophils % (auto) 1.7 % (0.0-7.0); Hematocrit 46.4 % (41.0-53.0); Hemoglobin 15.7 g/dL (13.5-17.5); Lymphocytes # (auto) 0.6 10 ^3/uL (0.4-5.4); Lymphocytes % (auto) 22.4 % (10.0-50.0); Mean Corpuscular Hemoglobin 32.2 pg (28.0-32.0); Mean Corpuscular Hgb Conc. 33.8 g/dL (32.0-36.0); Mean Corpuscular Volume 95.3 fL (80.0-100.0); Monocytes # (auto) 0.2 10 ^3/uL (0-1.3); Monocytes % (auto) 8.9 % (0.0-12.0); Neutrophils # (auto) 1.8 10 ^3/uL (1.6-8.6); Neutrophils % (auto) 66.7 % (37.0-80.0); Platelet Count (auto) 179 10^3/uL (140-450); Red Blood Cells 4.87 10^6/uL (4.5-5.90); Red Cell Distribution Width 12.9 % (11.8-14.3); White Blood Cell 2.8 10^3/uL (4.4-10.8)
[2024-07-15 07:14] LABS: Prostate Specific Antigen 1.63 ng/mL (0.0-4.0)
[2024-07-15 07:18] LABS: Alkaline Phosphatase 100 U/L (46-116); Anion Gap 7 (5-15); BUN/Creatinine Ratio 10.5 (10.0-20.0); Blood Urea Nitrogen 10 mg/dL (9-23); Calcium 9.5 mg/dL (8.7-10.4); Carbon Dioxide 28 mmol/L (20-31); Chloride 107 mmol/L (98-107); Potassium 4.1 mmol/L (3.5-5.1); Sodium 142 mmol/L (136-145); Total Protein 7.4 g/dL (5.7-8.2); Triglycerides 74 mg/dL (< 150)
[2024-07-15 07:19] LABS: Albumin 4.2 g/dL (3.2-4.8); Cholesterol 167 mg/dL (< 200); Folate (Folic Acid) 9.68 ng/mL (>5.38)
[2024-07-15 07:33] LABS: Alanine Aminotransferase < 9 U/L (7-40); Aspartate Aminotransferase 11 U/L (13-40); Bilirubin, Total 1.7 mg/dL (0.2-1.0); Glucose 155 mg/dL (74-106); HDL Cholesterol 37 mg/dL (40-59); LDL Cholesterol 116 mg/dL (< 100)
[2024-07-15 07:51] LABS: Urine Blood Negative /uL (Negative); Urine Clarity Clear (Clear); Urine Color Yellow (Yellow); Urine Hyaline Cast FEW /lpf (0 - 2); Urine Mucus FEW (None Seen); Urine Protein, UAD 1+ (Negative); Urine Specific Gravity 1.022 (1.001-1.035); Urine Squamous Epithelial Cell FEW /hpf (<5); Urine Urobilinogen 2 mg/dL (Negative); Urine WBC 4 /HPF (0-3)
[2024-07-15 10:27] LABS: Uric Acid 6.8 mg/dL (3.7-9.2)
== END | disposition home or self-care (01) ==
LOC: LAB 06:12
PROVIDERS: ATTEND Internal Medicine
DX: E61.2 Magnesium deficiency (principal); E55.9 Vitamin D deficiency, unspecified; D51.9 Vitamin B12 deficiency anemia, unspecified; E78.49 Other hyperlipidemia; E79.0 Hyperuricemia without signs of inflammatory arthritis and tophaceous disease; R94.6 Abnormal results of thyroid function studies; R82.79 Other abnormal findings on microbiological examination of urine; R82.998 Other abnormal findings in urine; R73.09 Other abnormal glucose; R68.89 Other general symptoms and signs; R82.90 Unspecified abnormal findings in urine
CPT/HCPCS: 36415; 80053; 80061; 81001; 82306; 82607; 82746; 83036; 84153; 84443; 84550; 85025; 87086

== ENCOUNTER 2025-05-04 06:04 | Outpatient (CLI) | payer OTHER ==
[~2025-05-04 06:04] MED LIST changes: +BAC09TP TOP; +ELAS-110 XX; +FLUC150T38 PO; +GABA300T4 PO
[2025-05-04 06:32] LABS: Hematocrit 45.3 % (41.0-53.0); Hemoglobin 15.3 g/dL (13.5-17.5); Mean Corpuscular Hemoglobin 33.4 pg (28.0-32.0); Mean Corpuscular Volume 98.9 fL (80.0-100.0); Nucleated Red Blood Cells % 0.2 %
[2025-05-04 06:44] LABS: Urine Protein, UAD 1+ (Negative)
[2025-05-04 06:46] LABS: INR 1.13 (0.9-1.15); Prothrombin Time 11.8 sec (9.3-11.8)
[2025-05-04 06:59] LABS: Albumin 4.3 g/dL (3.2-4.8); Alkaline Phosphatase 104 U/L (46-116); Anion Gap 8 (5-15); BUN/Creatinine Ratio 9.2 (10.0-20.0); Calcium 9.8 mg/dL (8.7-10.4); Carbon Dioxide 30 mmol/L (20-31); Chloride 103 mmol/L (98-107); Cholesterol 151 mg/dL (< 200); HDL Cholesterol 41 mg/dL (40-59); Magnesium 1.8 mg/dL (1.6-2.6); Potassium 4.2 mmol/L (3.5-5.1); Sodium 141 mmol/L (136-145); Total Protein 7.6 g/dL (5.7-8.2); Triglycerides 110 mg/dL (< 150)
[2025-05-04 07:17] LABS: Alanine Aminotransferase < 9 U/L (7-40); Bilirubin, Total 2.0 mg/dL (0.2-1.0); Blood Urea Nitrogen 8 mg/dL (9-23); Glucose 200 mg/dL (74-106)
[2025-05-04 08:24] LABS: Uric Acid 4.2 mg/dL (3.7-9.2)
== END 2025-05-04 17:00 | disposition home or self-care (01) ==
LOC: LAB 06:04
PROVIDERS: ATTEND Internal Medicine
DX: E11.9 Type 2 diabetes mellitus without complications (principal); E78.49 Other hyperlipidemia; E61.2 Magnesium deficiency; E79.0 Hyperuricemia without signs of inflammatory arthritis and tophaceous disease; E55.9 Vitamin D deficiency, unspecified; D51.9 Vitamin B12 deficiency anemia, unspecified; R82.998 Other abnormal findings in urine; R82.90 Unspecified abnormal findings in urine; R82.79 Other abnormal findings on microbiological examination of urine; R68.89 Other general symptoms and signs
CPT/HCPCS: 36415; 80053; 80061; 81001; 82306; 82607; 82746; 83036; 83735; 84443; 84480; 84550; 85025; 85610; 87086